=== PATIENT | male | born 1955 | race Caucasian/White ===

== ENCOUNTER → 2018-02-08 12:36 | Outpatient (CLI) | payer OTHER, SELFPAY | PROVIDERS: Family Provider Family Medicine; PCP Family Medicine; Visit Provider Family Medicine | DX: R41.82 Altered mental status, unspecified (principal) | CPT/HCPCS: 70551 ==

== ENCOUNTER → 2023-04-18 | Outpatient (CLI) | payer MEDICARE, SELFPAY ==
--- NOTE | 2023-04-20 09:06 | EKG12_ITS ---
Test Reason : PRE OP Blood Pressure : / mmHG Vent. Rate : 051 BPM Atrial Rate : 051 BPM P-R Int : 192 ms QRS Dur : 088 ms QT Int : 420 ms P-R-T Axes : 070 078 042 degrees QTc Int : 387 ms Sinus bradycardia Otherwise normal ECG Confirmed by DEYA BUTLER, CARMEN ([id number]), business editor YNES BAPTISTE ([id number]) on 05/01/2023 8:05:13 AM Referred By: MICHAEL Confirmed By:PRACHI FALK MD
[2023-04-20 10:33] LABS: Hematocrit 46.2 % (40-54); Hemoglobin 14.8 g/dL (13.0-16.5); Mean Corpuscular Hgb 30.6 pg (27.0-32.0); Mean Corpuscular Volume 95.7 fL (80-94); Mean Platelet Vol. 10.9 fl (6.2-12.0); Platelet Count 229 K/mm3 (150-450); RBC Distribution Width CV 12.4 % (11.6-14.6); RBC Distribution Width SD 44.3 fl (35.1-43.9); Red Blood Count 4.83 M/mm3 (4.6-6.2); White Blood Count 6.5 K/mm3 (4.4-11.0)
== END | disposition home or self-care (01) ==
LOC: PAT 05-16 09:42
PROVIDERS: Anesthesiology; PCP Family Medicine; Visit Provider Urology
DX: Z01.810 Encounter for preprocedural cardiovascular examination (principal); Z01.818 Encounter for other preprocedural examination
CPT/HCPCS: 36415; 85027; 93005

== ENCOUNTER → 2023-04-24 | Outpatient (CLI) | payer MEDICARE, SELFPAY ==
[2023-04-24 17:24] LABS: Amphetamine Urine VISTA NEGATIVE (<1000 ng/mL); Barbiturate Urine VISTA NEGATIVE (< 200 ng/mL); Benzodiazepine Urine VISTA NEGATIVE (< 200 ng/mL); Cocaine Urine VISTA NEGATIVE (< 300 ng/mL); Ecstacy Urine VISTA NEGATIVE (< 500 ng/mL); Methadone Urine VISTA NEGATIVE (< 300 ng/mL); PCP Urine VISTA NEGATIVE (< 25 ng/mL); THC Urine VISTA NEGATIVE (< 50 ng/mL); Vista UDS pH Range 5
== END | disposition home or self-care (01) ==
LOC: LAB 15:44
PROVIDERS: PCP Family Medicine; Referring Provider Internal Medicine Pulmonary Disease; Visit Provider Internal Medicine Pulmonary Disease
DX: G47.33 Obstructive sleep apnea (adult) (pediatric) (principal); Z79.899 Other long term (current) drug therapy
CPT/HCPCS: 80307

== ENCOUNTER 2023-06-20 08:00 | Outpatient (RCR) | payer MEDICARE, SELFPAY ==
--- NOTE | 2023-06-20 10:00 | BH.COMM ---
Communication Note Communication with Client Communication Note: Met with patient to complete initial paperwork. Significant change since pre-admission screening is that his mother . Completed [place] Suicide screening with low risk. Consulted with Dr. Gomez with order to admit to IOP level of care with dx F31.4
--- NOTE | 2023-06-20 10:10 | BH.SGPN.GN ---
Behaviors/Verbalizations/Mental Status: []Pt alert and oriented, casually dressed and groomed. Eye contact good. Motor activity appropriate. Speech within normal limits. Affect congruent, mood anxious. Thoughts linear, logical, no signs of hallucinations or delusions. Client Response/Progress/Benefit: []Pt was an active participant in activity and taking notes during group discussion. Attentive during psychoeducation on coping skills, why people use unhealthy coping skills, and how to replace unhealthy coping skills. Group came up with list of negative coping skills including not asking for help, avoidance, isolating, and sleeping. Group discussed the effects of how negative coping skills can impact mental health in a negative way. Benefited from increased understanding of unhealthy coping skills and the need for developing healthy internal and external coping skills. Pt will continue IOP tx to improve mood stability, improve daily functioning, and prevent decompensation.
--- NOTE | 2023-06-20 11:10 | BH.SGPN.GN ---
Behaviors/Verbalizations/Mental Status: []Pt alert and oriented, casually dressed and groomed. Eye contact fair. Motor activity appropriate. Speech within normal limits. Affect congruent, mood anxious. Thoughts linear, logical, no signs of hallucinations or delusions Client Response/Progress/Benefit: []Pt responded well to session, taking notes and contributing. Group discussed the different categories of coping skills which included distraction, emotional release, grounding, self-love, and thought challenging.? Pt participated in creating a coping skills ?menu? from the five categories of coping skills. Pt's coping skill menu included: talking to friends, getting outside, belly breathing, wins journal, and focusing on positives. Appeared to benefit from increasing repertoire of healthy coping skills. Will continue IOP tx to improve mood stability, increase healthy coping skills, and prevent decompensation.
--- NOTE | 2023-06-20 14:23 | BH.PSA_ITS ---
Source of Information Presenting Problems/Circumstances Problems, Referral Source, Mental Status, Client: The patient is a 67-year-old male with a long history of bipolar 1 disorder who was referred to the [facility] behavioral health IOP by his outpatient provider, Keyona Mckeon, for worsening depression. The patient states that he has been depressed for several years now and was seen with his at the intake and says that patient tends to minimize his symptoms but she feels he has no [place] . He endorses sadness, hopelessness, anhedonia but states that he does enjoy being outside. He does admit to passive thoughts of . Pt reports when he is severely depressed he will sleep most of the day. Reports panic attacks a few times a week. Identifies marriage as current stressor. Psychiatric Presentation Psych Issues & Need for Admission Psychiatric Issues:: Bipolar I disorder, Panic Disorder, KSENIA Past Psychiatric History MH Treatment Hx Treatment History: Pt has received off and on treatment since he was in his mid- twenties. He has a psychiatrist for [address] Philip Mary in [facility]. He has been seeing Keyona Mckeon at [facility] in [place] for 1 1/2 years for counseling. First hospitalization:: 1985 [place] Most recent hospitalization:: 1986 [place] Describe (age, circumstance, etc) any past hospitalizations: Pt was 27 years old when he was first hospitalized for suicidal thoughts. Pt reported he believed at the time he was experiencing Bipolar symptoms, but wasn't diagnosed with Bipolar I until his second hospitalization the next year. Development & Family of Origin Childhood Significant Childhood Events: He was born and raised in [place] [facility] and describes his childhood as good. He grew up on a small farm and he was the fifth out of 8 siblings. Family Who currently lives in your home?: Lives with and two of his sons. Describe family composition:: He got at age 26 and and his is 5 years younger than him and they have 6 children age 19-39. He has a 23-year-old son who he feels is depressed to his living at home and a 19-year-old who is attending [place] college. He enjoys his grandchildren and other children. Family History Family Hx of Psychiatric or AOD Problems: His brother and grandfather have bipolar and his uncle by suicide. Father was an alcoholic. Ethnicity Sexuality Sexual Orientation: Heterosexual Mental Status Memory Recent Memory: Fair Remote Memory: Fair Concentration Concentration: Fair Eye Contact Eye Contact: Good Speech Speech: Tangential Thought Process Thought Process: Logical Insight: Fair Judgment: Fair Behavior: Normal and Anxious Orientation Orientation: Time, Person, Place and Situation Appearance Appearance: Appropriate Mood Mood: Anxious Affect Affect: Alert Suicide Assessment Suicidal Ideation Have you ever felt like hurting yourself?: Yes Please explain:: No active suicidal thoughts. Passive thoughts of . No hx of suicide attempts. Physician Notification Violent Behavior/Abuse History Homicidal Ideation Do you have any homicidal thoughts? If so, explain:: No Abuse Have you ever been abused?: No Life Events Are there any other significant life events?: (parents) Safety Do you ever feel threatened in your home? If yes, describe:: No Adult Social History Age 19 to Present Describe your current support system:: Pt reported his can be supportive, but in the past couple years they have been having more issues. Stated they have less in common and have drifted apart. Substance Use Substance Substance Use Type: Alcohol (He uses alcohol about once a week he has 1 beer or 1 whiskey. 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 He is on disability due to his mental health issues for several years now. Service Service Have you ever been in the ?: No Legal History Records Have you had any past legal charges?: No Do you have any current legal charges?: No Have you ever been incarcerated? If yes, describe:: No Court Orders Have you had any past court orders for psychiatric treatment?: No Do you have a present court order for psychiatric treatment?: No Problem Checklist Current Problem Areas Problem List: Depressed mood/sad, Bereavement, Anxiety, Anger/aggression and Additional psychosocial stressors Perennial House Manager's Assessment Client's Needs What are the client's goals?: Feel happier/experience [place]. Improve healthy photocopy operator ing skills. What are the client's strengths?: Resilience Diagnoses Diagnoses Diagnosis #1:: Bipolar I most recent episode depression, severe without psychosis F31.4 Diagnosis #2:: Panic Disorder Diagnosis #3:: KSENIA Interpretive Summary Interpretive Summary Interpretive Summary: The patient is a 67-year-old male with a long history of bipolar 1 disorder who was referred to the [facility] behavioral health IOP by his outpatient provider, Keyona Mckeon, for worsening depression. The patient states that he has been depressed for several years now and was seen with his at the intake and says that patient tends to minimize his symptoms but she feels he has no [place] . He endorses sadness, hopelessness, anhedonia but states that he does enjoy being outside. He does admit to passive thoughts of . Pt reports when he is severely depressed he will sleep most of the day. Reports panic attacks a few times a week. Identifies marriage as current stressor. 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 The patient's mother April 26, 2023 at age 97 and he was close to her so he is grieving this loss. He denies any history of self-harm and does not use caffeine. His energy is low some days. Concentration is low at times but other times is normal. He denies guilt, suicidal ideation, plan for suicide, homicidal ideation, hallucinations, delusions or patricio symptoms. 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 He denies OCD, eating disorder, trauma, PTSD, seizure or head trauma. Last manic episode was in 2016 and involve grandiosity high-energy and other. Treatment Plan Recommendations Recommendations Guidelines Recommendations:: The patient will start the IOP in behavioral health at [facility] as the structure, support, education and group therapy will hopefully prevent worsening of the patient's symptoms that could result in hospitalization.
--- NOTE | 2023-06-20 15:57 | BH.MTP_ITS ---
Master Treatment Plan Patient Information Program Physician:: Dr. Horta Primary Therapist:: Shaila Harry [facility] Psychiatric Diagnoses Psychiatric Diagnoses:: Diagnosis #1:: Bipolar I most recent episode depression, severe without psychosis F31.4 Diagnosis #2:: Panic Disorder Diagnosis #3:: KSENIA Diagnosis Code(s):: F31.4 Estimated LOS Estimated LOS (in weeks):: 6 Problem/Goal #1 Problem/Goal #1 Stated Goal:: Client will increase mood stability, decrease depressive symptoms, and thoughts of due to Bipolar I through Intensive Outpatient Program. Description of Barriers: Potential barriers to treatment include depressed mood, racing thoughts, low motivation, and limited supports. Functional Impact: The patient is a 67-year-old male with a long history of bipolar 1 disorder who was referred to the [facility] behavioral health IOP by his outpatient provider, Keyona Mckeon, for worsening depression. The patient states that he has been depressed for several years now and was seen with his at the intake and says that patient tends to minimize his symptoms but she feels he has no [place] . He endorses sadness, hopelessness, anhedonia but states that he does enjoy being outside. He does admit to passive thoughts of . Pt reports when he is severely depressed he will sleep most of the day. Reports panic attacks a few times a week. Identifies marriage as current stressor. Objectives Objective #1: Stated Objective: Client will learn and utilize 2-3 healthy coping strategies to manage depressive symptoms. Interventions: Therapist will utilize CBT techniques to assist client with understanding the connection between thoughts, feelings and behaviors. Education will be provided on behavioral activation. Therapist will assist client in learning internal coping strategies to manage depressive symptoms, along with helping client identify triggers. Discharge Criteria: Client will have achieved this goal when can verbalize and has practiced at least 2 healthy coping strategies that successfully manage depressive symptoms. Target Date: 08/01/23 Review Date: 07/18/23 Objective #2: Stated Objective: Identify at least 2-3 negative self-talk messages used to reinforce depressed mood. Interventions: Through groups and individual therapy, pt will be provided with education on cognitive distortions, mistaken beliefs, and identifying and combating negative self-talk. Therapist will help pt explore connection between thoughts, feelings, and actions. Discharge Criteria: Client will have achieved this goal when can verbalize at least 2 negative self-talk messages and effectively replace those thoughts with affirmative messages.? Target Date: 08/01/23 Review Date: 07/18/23 Problem/Goal #2 Problem/Goal #2 Stated Goal:: Stabilize anxiety level while increasing ability to function on daily basis. Description of Barriers: Potential barriers to treatment include depressed mood, racing thoughts, low motivation, and limited supports. Functional Impact: The patient is a 67-year-old male with a long history of bipolar 1 disorder who was referred to the [facility] behavioral health IOP by his outpatient provider, Keyona Mckeon, for worsening depression. The patient states that he has been depressed for several years now and was seen with his at the intake and says that patient tends to minimize his symptoms but she feels he has no [place] . He endorses sadness, hopelessness, anhedonia but states that he does enjoy being outside. He does admit to passive thoughts of . Pt reports when he is severely depressed he will sleep most of the day. Reports panic attacks a few times a week. Identifies marriage as current stressor. Objectives Objective #1: Stated Objective: Client will learn and implement 2-3 calming skills to reduce overall anxiety and manage anxiety symptoms. Interventions: Therapist and group sessions will help client identify phys iological warning signs of anxiety, increase awareness of thoughts that increase anxiety, and identify behaviors that reinforce anxious symptoms. Group and individual counseling will teach client calming skills to help manage anxious symptoms. Discharge Criteria: Client will have achieved this goal when can verbalize at least 2 calming skills and reports skills successfully help reduce anxious symptoms. Target Date: 08/01/23 Review Date: 07/18/23 Objective #2: Stated Objective: Pt will decrease anxious symptoms AEB pt?s score on the DSM 5 cross-cutting measure improve pt?s daily functioning. Interventions: Through groups and individual therapy, pt will be provided education about anxiety?s impact on body and common physiological reaction to anxiety. Therapist will teach pt appropriate breathing techniques and build healthy coping skills to manage daily anxieties. Discharge Criteria: Pt will have met this goal when pt?s score on the DSM 5 cross cutting measure for anxiety has been decreased and per pt?s report daily functioning has improved. Target Date: 08/01/23 Review Date: 07/18/23
--- NOTE | 2023-06-20 15:58 | BH.MDN ---
Multi-Disciplinary Note Note 60-min Individual: Time Started:: 12:05 Date: 06/20/23 Purpose of session/treatment goals addressed:: Purpose of session was to build rapport, gather background information, and establish treatment goals. Eye Contact:: Fair Motor Activity:: Appropriate Appearance:: Casual Speech:: Rambling Mood:: Anxious Affect:: Congruent Thoughts:: Logical and Racing Staff Interventions:: CBT techniques, rapport building, strengths perspective, treatment planning and goal setting Client Response:: Respond well to session as evidenced by client openly sharing thoughts and feelings throughout. Client shared that he has been living with bipolar disorder for over 30 years. Client stated he mostly has been struggling recently with depressed and low episodes. Client reported one of his doctors told him that he likely will experience many patricio episodes as he gets older. Client stated his last bad manic episode would have been what led to him leaving his job approximately in 2017. Client reported he cannot think of any true manic episodes in the last few years. Client reported he mostly is at a 3 and 4 with that meaning to him moderate to severely depressed. Client noted additional psychosocial stressor has been interpersonal conflict within his marriage. Client stated him and his do not get along very often and do not have a lot of commonalities. 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 Client reported his does not want to hear about his farm or be engaged in that which continues to set a barrier between their then connecting. Client expressed frustration that he also wants to focus on building a partnership with several of his siblings to buy his mom's house and create into an area being be but his at this point is not supportive of this idea. Client shared he needs projects to keep him going and is frustrated that she does not want him to do that. Client reported prior to starting IOP he was struggling with significant depression which she stays in his bed and does not do anything. Client stated lately he has been making himself get outside and work on the farm and be with the cattle which he notes does improve his mood. Client stated while he is in IOP he would like to work on building skills to manage mood instability and how to get out of his depressed episodes better. Risks/Concerns:: Client states he occasionally has passive thoughts of denies active thoughts plan or intention. Future oriented. Progress Toward Goals/Plan:: No progress observed given client's first day in IOP. Client has history of bipolar disorder for the last 35 years with recent increase of depressive episodes that result in client staying in his room most the day and not functioning. Client's interpersonal conflict with his does seem to add to negatively impact his mental health. Client is to continue IOP to decrease depressed episodes, improve healthy coping skills, and prevent decompensation. Time Stopped:: 13:10
--- NOTE | 2023-06-21 10:40 | BH.NA_ITS ---
Physical Data Vital Signs Pulse Rate: 55 Blood Pressure: 128/84 Height/Weight Height: 1.68 m Weight:: 65.771 kg Weight in Pounds: 145.0 lbs Current Medication Compliance Medication Compliance Do you take your medication as prescribed?: Yes Nutritional History Appetite Nutritional Instructions: Describe your appetite:: Good Additional nutritional information:: Client states he has gained a few pounds lately and hasn't been working out as much as he normally does. Functional Assessment Sleep Pattern Describe any problems with sleeping: Client states he sleeps about 7-8 hours per night and does use his CPAP machine. 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 If so, list type and date:: Yes (foot, hernia surgery as infant) Substance Abuse Substance Abuse Please describe substance abuse in the last 30 days:: Client states he drinks 1-2 beers per week. Client denies tobacco or substance use. Client states he drinks caffeine occasionally, stating he has 2-3 Pepsi's per week. Mental Status Summary Mental Status Significant Findings/Observations on Appearance and Mood:: Client is alert and oriented x 4. Client is casually groomed. Client is cooperative with assessment. Client makes good eye contact. Client's voice has mostly normal rate but is somewhat mumbled at times. Client has appropriate affect. Client has normal processing. Client denies recent delusions/hallucinations. Client denies current SI. Suicide Assessment Suicidal Ideation Are you currently or have you been suicidal in the past?: Yes Suicidal Intentional Rating Scale (SIRS): Suicidal thoughts (past) Physician Notification Past Psychiatric History MH Treatment Hx Age of first mental health symptoms: Client was first hospitalized in 1985 and then again in 1986 where he was diagnosed with bipolar disorder. Client has been on [place] since 1986. Client states he has not had a manic episode since 2017, but states he spends most of his time feeling depressed. Describe (age, circumstance, etc) any past hospitalizations: 1985 & 1986 - diagnosed with Bipolar 1 disorder Current providers for mental health treatment (counselor, psychiatrist, community case manager , etc.): Dr. Ken Garcia at [facility], therapist Keyona Mckeon at [facility] Fall Risk Assessment Age Age: 60-70 Mental Status Mental Status: Willing & able to ask for assistance when needed Physical Status Physical Status: No problems Impairments Impairments: None Elimination Elimination: Continent AND independent Gait or Balance Gait or Balance: Walks independently Hx of Falls History of falls in the past 6 months: No known history Medications/Substances Psychotropics:: Antipsychotics Medications/substances used within the past 24 hours or ordered to administer: 1-2 of the medications/substances listed above Total Score Total Points:: 2 RN Summary of Impressions Impressions Recommendations Impressions: Psychiatric Issues: 1. Bipolar 1 disorder, most recent episode depression, severe without psychosis (F31.4) 2. Panic disorder 3. Generalized anxiety disorder 4. Obstructive sleep apnea using CPAP (diagnosed 1 month ago) Level of Care How do the client's current symptoms and functional deficits support need for this level of care?: Client was referred to IOP by his outpatient therapist due to limited benefit from outpatient therapy. Client was accompanied to intake of IOP by his , who said he has anhedonia about life. Client does state that he has been depressed most of the last 38 years , but states I'm a fighter, and I still do what I have to do . Client reports being on an antidepressant in 2018 that made him have auditory hallucinations of hearing music and he stopped taking it after several months. Client reports frustration that although he has been on [place] since 1986 and hasn't had a manic episode since 2017, he has felt depressed most of the time. Client states You just aren't living life when you feel depressed all the time . Client states he wants help to not have such severe depression so he can participate in more life activities. Client states he thinks retiring and having less money due to retiring has contributed to his depression. Client denies SI. IOP will promote gains and prevent further decompensation while providing social support and skills training.
[2023-06-21 11:04] VITALS: BP 128/84; PULSE 55
--- NOTE | 2023-06-21 11:15 | BH.SGPN.GN ---
Behaviors/Verbalizations/Mental Status: []Pt alert and oriented, casually dressed and groomed. Eye contact good. Motor activity appropriate. Speech within normal limits. Affect congruent, mood depressed. Thoughts linear, logical, no signs of hallucinations or delusions. Client Response/Progress/Benefit: []Pt responded well to session AEB listening attentively to peers and providing input throughout. Pt attentive during psychoeducation on the different boundary styles. Pt identified he is rigid within some areas of his life but porous within others, dependant on the environment. Pt was given a handout on strategies for healthy boundary setting. Identified wanting to practice self-reflection and reminding himself of the long-term benefit to improve his own boundaries. Appeared to benefit from increasing insight to boundary setting and the impacts on mental health. Seemed to benefit from increased awareness of boundary styles and strategies to improve setting boundaries. Will continue IOP tx to challenge thought distortions, encourage use of behavior activation skills, and prevent decompensation. Narrative Note: []
--- NOTE | 2023-06-21 12:11 | PCM.BH.PSYEV ---
Psychiatric Evaluation Initial Evaluation Initial Evaluation: History of Present Illness: [] The patient is a 67-year-old male with a long history of bipolar 1 disorder who was referred to the [facility] behavioral health IOP by his outpatient provider for worsening depression. The patient states that he has been depressed for several years now and was seen with his at the intake and says that patient tends to minimize his symptoms but she feels he has no [place] . The patient states I am tired of suffering . The patient sleeps all day sometimes when he is depressed. For primary support he has his but he states that they are having some marital issues and they he feels they have grown apart over the years. 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 He also volunteers at [employer] and other. The patient's mother April 26, 2023 at age 97 and he was close to her so he is grieving this loss. He denies any history of self-harm and does not use caffeine. He endorses sadness, hopelessness, anhedonia but states that he does enjoy being outside. His appetite is good and he is gaining few pounds in the past few months. He is sleeping 8 hours a night but also naps during the day at times. His energy is low some days but not others. Concentration is low at times but other times is normal. He denies guilt, suicidal ideation, plan for suicide, homicidal ideation, hallucinations, delusions or patricio symptoms. He does admit to passive thoughts of but states I survive even though I am not thriving . 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 He has panic attacks a few times a week which she has learned to moderate somewhat with breathing exercises. He denies OCD, eating disorder, trauma, PTSD, seizure or head trauma. Last manic episode was in 2017 and involve grandiosity high-energy and other. Current Psychiatric Medications: [] Haynes carbonate 900 mg total (300 mg every morning and 600 mg nightly (x 35 years. Labs are checked regularly and his level runs around 0.6. Kidney function is normal according to the patient. Past Psychiatric History: [] He has a psychiatrist for [address] Philip Mary in [facility]. He had 2 psych admissions in 1985 in 1986 in [place] for depression and patricio. No suicide attempts ever. He took an antidepressant Wellbutrin in 2019 which caused hallucinations. He was diagnosed with bipolar disorder in 1985 after one of his psych admits. His counselor is Selina Mckoen at [facility]. He has tried a few other meds including Wellbutrin, Viibryd and modafinil but these did not work well. He denies any other medication and denies any use of second-generation antipsychotics ever. Substance Use History: [] He uses alcohol about once a week he has 1 beer or 1 whiskey. Non-smoker. No vaping. No marijuana and no drugs. Allergies: [] Latex and red dye Medications: [] Psych meds as dictated above plus Flomax, vitamin D and vitamin C. Past Medical History: [] He has some urinary symptoms secondary to prostate issues. He has had hammertoe surgery and foot surgery in the past but no other issues. Family Psychiatric History: [] Mother age 96 in 2022 and father in 2015 at age 94. His brother and grandfather are bipolar and his uncle completed suicide. Father's was alcoholic. Personal/Social History: [] He was born and raised in [place] and describes his childhood as we did not have much but we had everything . He grew up on a small farm and he was the fifth out of 8 siblings. He was close to all his siblings and closer even still to several of them. He denies any verbal, physical or sexual abuse but does admit that his father yelled at times. Patient states that he had trouble in school initially up to second grade but by high school he did fine graduated high school and the top 15 of his classes. He went to 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 He is on disability due to his mental health issues for several years now. He got at age 26 and and his is 5 years younger than him and they have 6 children age 19-39. He has a 23-year-old son who he feels is depressed to his living at home and a 19-year-old who is attending [employer]. He enjoys his grandchildren and other children. Legal History: [] No arrests. Has sanitation truck driver's license. Review of Systems: [] Patient has difficulty urinating due to prostate issues but review of systems is otherwise negative except as noted in present illness. Vital Signs: [] Vital signs are reviewed reviewed in the records and in the nurses notes and updated and the patient is deemed medically able to participate in the IOP. Mental Status Examination: [] The patient is a 67-year-old male who appears younger than stated age and is seen wearing glasses and is of normal weight. He is casually dressed and groomed with good hygiene and has no psychomotor agitation or retardation. He is cooperative and pleasant during the interview. Speech is rapid at times but not pressured. It is normal rate and rhythm and fluent. Eye contact is good. Mood is depressed. Affect is constricted. Thought process is goal-directed and organized. Thought content: There is evidence of passive thoughts of . There is no evidence of suicidal ideation, plan for suicide, homicidal ideation, hallucinations, delusions or symptoms of patricio. Reality testing is intact. Intelligence is above average. Judgment is intact. Insight: Some present but limited. Labs and testing: Done on a routine basis by his outpatient doctor for his lithium. He is at 150 pounds and 5 foot 6 inches tall and usually is about 10 pounds thinner than this. Diagnoses: [] 1. Bipolar 1 disorder, most recent episode depression, severe without psychosis (F31.4) 2. Panic disorder 3. Generalized anxiety disorder 4. Obstructive sleep apnea using CPAP (diagnosed 1 month ago) 5. Primary support and work issues Plan: [] The patient will start the IOP in behavioral health at [facility] as the structure, support, education and group therapy will hopefully prevent worsening of the patient's symptoms that could result in hospitalization. He felt safe during the interview and if it anytime he does not feel safe he will let us know or go to the emergency room. The risk, and options, possible complications and side effects of the medications were discussed with the patient and he understands and accepts these. He will continue his lithium at the current dose. He agrees to try Vraylar 1.5 mg p.o. daily and prescription is sent in for this. If insurance will not cover this we may have to try medication such as Latuda instead. Patient does not wish any weight gain as he gained weight over the holidays. Patient received a diagnosis of pseudodementia in 2019 but I see no evidence of this at this point. The patient will continue to follow-up with his outpatient medical and psychiatric providers and I will see the patient in follow-up in 2 weeks.
--- NOTE | 2023-06-21 12:23 | BH.DR.ITP ---
Initial Treatment Plan Patient Information Visit Information: ADMISSION DATE: EXPECTED LOS: 4-6 weeks Problems/Symptoms Problem #1:: Depression Symptom:: Sadness, hopelessness, anhedonia, hypersomnia, low energy, decreased concentration, passive thoughts of . Problem #2:: Anxiety Symptom:: Worry, rumination, panic attacks
--- NOTE | 2023-06-22 09:05 | BH.SGPN.GN ---
Behaviors/Verbalizations/Mental Status: [] Eye contact is good. Motor activity is appropriate. Appearance is casual. Speech is appropriate. Mood is anxious. Affect is congruent. Thoughts are linear and logical. No evidence of psychosis. Reviewed daily check in sheet and no reports of suicidal ideations or intent. Client Response/Progress/Benefit: [] Pt was an active participant in group discussion. Attentive. Daily symptom tracker notes 4/5 for depression and 3/5 for anxiety. Believes that his mood and functioning have been worse over the past week. Reports being emotionally exhausted after his first week in IOP level of care however I want to be here and I find it helpful . Pt reported that his describes him as anhedonic and shows this therapist a printed out article on the term. This is me . Reports no [place] or laughter. Only time I laugh is when I play Pickleball . He presents as talkative and upbeat so to some extent his mood is incongruent. Shared with the group how he plans everything out during the day and even the month. Discussed his plans for today which other group members reported sounded exhausting. Described an event this AM regarding making and spilling soup broth which led to dysregulation. I lost it . Feels unappreciated. Describes all these tasks he completed and felt accomplished however believes his only pointed out what he failed to do. Shared a time when my said a prayer that I would say anything inappropriate which impacted his feelings. Interpersonal relationships and anhedonia are reported to be significantly impact his self-esteem and depression. Limited progress noted however this is only his 3rd day. Benefited from group support, encouragement, and feedback. Will continue in [facility] to prevent decompensation, stabilize mood, and increase healthy coping. Narrative Note: []
--- NOTE | 2023-06-22 10:15 | BH.SGPN.GN ---
Behaviors/Verbalizations/Mental Status: []Pt alert and oriented, casually dressed and groomed. Eye contact good. Motor activity appropriate. Speech within normal limits. Affect congruent, mood depressed. Thoughts linear, logical, no signs of hallucinations or delusions. Client Response/Progress/Benefit: []Pt an active participant throughout. Participated during interactive discussion on defining conflict (internal/external) and possible benefits to conflict. Attentive during psychoeducation on conflict styles and engaged during small group activity in which peers identified the benefits and consequences to each conflict style. Pt identified their primary conflict style as avoiding when he does not have energy and collaborating when he has the emotional energy to give. Shared avoiding keeps him from getting needs met. Benefited from increased awareness of the impact of conflict styles in mental health. Will continue in IOP to reinforce healthy coping skills, reduce intensity of distorted thoughts, and improve mood stability. Narrative Note: []
--- NOTE | 2023-06-22 11:15 | BH.SGPN.GN ---
Behaviors/Verbalizations/Mental Status: []Pt alert and oriented, neatly dressed and groomed. Eye contact good. Motor activity appropriate. Speech within normal limits. Affect congruent, mood euthymic. Thoughts linear, logical, no signs of hallucinations or delusions. Client Response/Progress/Benefit: [] Pt was an active participant in group discussions and activity. Attentive during psychoeducation. Along with peers was able to reflect on what conflict resolution skills can be useful outside of IOP. Pt chose to continue to work on the conflict resolution skills of discussing one topic at a time, expressing feelings with words, and taking a break when things get heated. Benefited from practicing and learning conflict resolution skills. Will continue in IOP to prevent decompensation, gain healthy coping skills, and increase self-awareness. Narrative Note: []
--- NOTE | 2023-06-26 09:05 | BH.SGPN.GN ---
Behaviors/Verbalizations/Mental Status: [] Pt alert and oriented, casually dressed and groomed. Eye contact good. Motor activity appropriate. Speech within normal limits. Affect congruent, mood content, dysthymic. Thoughts linear, logical, no signs of hallucinations or delusions. Reviewed pt?s symptom tracker, no risk for suicidal ideation, plan, or intent 06/26/23 Client Response/Progress/Benefit: []Pt responded well to session, participating in processing and providing supportive feedback. Pt reports feeling glad this morning sharing that he is happy he followed through with beginning the IOP program last week, as he has found the environment to be very supportive. Pt reports that he felt tired following the first week and is trying to remind himself this is normal, given the change in focusing on his mental health rather than suppressing things. Went on to identify an additional win as attending several social events with his family and voodoo over the weekend. Reports feeling most like himself when he is busy. Pt did however recognize that he may have ?overdone it?, as he had difficulties getting out of bed and getting motivated Monday as a result. Receptive of discussion on identifying what a healthy balance looks like for him. Pt appeared to benefit from self-reflection on areas of progress, as well as from group support. Pt will continue IOP tx to promote mood stability, increase distress tolerance skills, and improve daily functioning. Narrative Note: []
--- NOTE | 2023-06-26 10:20 | BH.SGPN.GN ---
Behaviors/Verbalizations/Mental Status: []Pt alert and oriented, neatly dressed and groomed. Eye contact good. Motor activity appropriate. Speech- within normal tone/rate, but off topic at times. Affect congruent, mood euthymic. Thoughts linear, logical, no signs of hallucinations or delusions. Client Response/Progress/Benefit: [] Pt was engaged and open to the discussion and appeared to respond well to the group. Pt used active listening and gave feedback during group discussion. Pt stated belief that he has a positive perspective about treatment which is helping pt engage more and have an open mind. Pt admits that he has not always been positive and he often told himself ?this is just how I am.? Pt appeared to benefit from increasing awareness of different perspectives and how they can affect mental health. Pt will continue IOP treatment to improve daily functioning, gain healthy coping skills, and prevent decompensation. Narrative Note: []
--- NOTE | 2023-06-26 11:10 | BH.SGPN.GN ---
Behaviors/Verbalizations/Mental Status: []Pt alert and oriented, casually dressed and groomed. Eye contact good. Motor activity appropriate. Speech within normal limits. Affect congruent, mood euthymic. Thoughts linear, logical, no signs of hallucinations or delusions. Client Response/Progress/Benefit: []Pt was attentive and contributed to group discussion. Pt worked with group to identify strategies that can help with challenging negative perspective. Pt completed strengths exploration worksheet, identifying empathy, honesty, kindness, humor, and confidence as personal strengths. Pt able to acknowledge how these strengths are helping pt and can continue to help pt in mental health journey. Pt identified wanting to work on getting back to his strengths of enthusiasm and adventurousness. Benefited from identifying personal strengths and strategies for enhancing use of identified strengths. Pt will continue IOP tx to increase healthy coping skills, challenge distorted thoughts, and prevent decompensation.
--- NOTE | 2023-06-28 09:05 | BH.SGPN.GN ---
Behaviors/Verbalizations/Mental Status: [] Eye contact is good. Motor activity is appropriate. Appearance is casual. Speech is Appropriate. Mood is depressed. Affect is congruent. Thoughts are linear and logical. No evidence of psychosis. Reviewed daily check in sheet and no reports of suicidal ideations or intent. Client Response/Progress/Benefit: [] Pt was an active participant in group discussion. Attentive. Daily symptom tracker notes 08/21 for anxiety, depression, and irritability. He shared mental health wins which included practicing conflict resolution, patience, and not being critical. He remains active however avoids family spending a majority of his day outside tending to projects in his barn. Poor self-esteem feeling as if he does everything wrong . especially can be hypercritical of him, his choices, and his actions leading him to feel more as a burden. He shared a recent example. When asked how he is managing his depression he states I do good things for others . Seeks reassurance that he is beneficial, helpful, and needed. Completing tasks and volunteering is where he gets his most self-worth. Limited progress noted. Benefits feom group support, empathy, and feedback. Will continue in IOP to prevent decompensation, decrease depression, and to increase healthy coping. Narrative Note: []
--- NOTE | 2023-06-28 10:10 | BH.SGPN.GN ---
Behaviors/Verbalizations/Mental Status: [] Client alert and oriented, casually dressed and groomed. Eye contact good. Motor activity appropriate. Speech within normal limits. Affect congruent, mood euthymic. Thoughts linear, logical, no signs of hallucinations or delusions. Client Response/Progress/Benefit: [] Client responded well to session AEB sharing and listening attentively to others. Group provided examples of benefits of having social support, including: feeling like you matter, security, and motivation. Client also participated in group discussion regarding the barriers to accessing support including personal examples like: not reaching out, lack of communication, and over using certain supports. Client participated in experiential activity illustrating the impact communication, boundaries, and patience play in creating healthy support systems. Client appeared to benefit from increased knowledge of the benefits of social support and greater self-awareness. Will continue IOP tx to prevent decompensation, reduce negative self-talk, and improve overall functioning. Narrative Note: []
--- NOTE | 2023-06-28 11:10 | BH.SGPN.GN ---
Behaviors/Verbalizations/Mental Status: [] Client alert and oriented, casually dressed and groomed. Eye contact good. Motor activity appropriate. Speech within normal limits. Affect congruent, mood euthymic. Thoughts linear, logical, no signs of hallucinations or delusions. Client Response/Progress/Benefit: [] Client was an active participant throughout AEB contributing to discussion, providing personal examples, and taking notes. Client processed emotions felt in the activity and how they coped in the moment. Client provided input during discussion on the types of support our supports can provide. Client able to identify current support system and barriers that get in the way of using supports by drawing out their own support net. Client reported after identifying what type of supports they receive; they gained awareness that they could benefit from more emotional supports. Client identified steps to achieve this by joining a support group, calling up new friends, and spending time with supports. Client shared increasing this support will help them by getting affirmation and support. Client seemed to benefit from identifying the type of support client needs to work on improving. Client recommended to continue IOP tx to prevent decompensation, challenge thinking patters, and increase emotional regulation skills. Narrative Note: []
--- NOTE | 2023-06-30 09:05 | BH.SGPN.GN ---
Behaviors/Verbalizations/Mental Status: [Patient was alert and oriented, appropriately dressed and groomed. Eye contact was good, motor activity normal, speech within normal limits. Affect congruent, mood content. Thoughts linear, logical, no signs of hallucinations or delusions. Reviewed Patients symptom tracker and the patient reports low/moderate in depressed mood, anxiety/panic attacks, and agitation/irritability/anger. Patient does not report symptoms in self-harm urges or thoughts/risk for suicide. ] Client Response/Progress/Benefit: [Patient was engaged and open to the discussion. Patient reported his mood to be ?tired?. 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 But he had ?the best time and the most fun? he has had in a while. Patients second win was that he has written out a list of things he is unhappy with his marriage and that he and his will be going to marriage counseling. His stressor is that he is having troubles with his . Patient was interactive and respectful with other group members about their mental wins and stressors. Patient benefited from the discussion by listening to feedback and giving input on his peer?s stressors and mental health wins. Patient will continue with IOP treatment to help develop healthy skills, promote mood stability, and improve distress tolerance. ] Narrative Note: []
--- NOTE | 2023-06-30 11:15 | BH.SGPN.GN ---
Behaviors/Verbalizations/Mental Status: []Pt alert and oriented, casually dressed and groomed. Eye contact fair to good. Motor activity appropriate. Speech within normal limits. Affect congruent, mood irritable and dysthymic. Thoughts linear, logical, no signs of hallucinations or delusions. Client Response/Progress/Benefit: [] Pt was an active participant during activity and discussion AEB providing some input, connecting with peers, as well as taking notes throughout. Pt did well to engage as group worked on identifying characteristics and benefits of adopting a growth mindset. Worked with fellow participants in reframing the example fixed thoughts into growth mindset thoughts. Pt worked on changing own fixed thought to a more growth mindset thought, however declined to share this out loud with the group. Receptive of discussing benefits of growth mindset and brainstorming strategies for prompting growth-mindset. Pt appeared to benefit from working in small groups to challenge own thoughts and help peers. Pt will continue IOP tx to improve mood stability, reduce negative thought patterns, and improve daily functioning. Narrative Note: []
--- NOTE | 2023-06-30 14:49 | BH.MDN ---
Multi-Disciplinary Note Note 60-min Individual: Time Started:: 10:12 Date: 06/30/23 Purpose of session/treatment goals addressed:: Purpose of session was to address goals 1 and 2 from MTP. Eye Contact:: Good Motor Activity:: Appropriate Appearance:: Casual Speech:: Rambling Mood:: Euthymic and Anxious Affect:: Congruent Thoughts:: Logical and Racing Staff Interventions:: thought challenging, psychoeducation on: (wins journal), CBT techniques, rapport building, strengths perspective and goal setting Client Response:: Client reported he spoke with his yesterday and she had some questions for therapist. Client stated his wanted to know if couples counseling would make client worse. therapist stated if they want to improve their relationship couples counseling would likely be helpful. Client stated he believes couples counseling is truly the only way to improve their relationship at this point. Client stated he doesn't see how the relationship could get better if they don't try something different. Client reported his would like to come in to join one of the Individual sessions while he is in IOP. 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 Client stated it would be difficult on the relationship if his chooses to not support his endeavor of wanting to purchase his parents property with other siblings involved. 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 Client stated it's frustrating to not have the support of his which adds additional layer of complication within the relationship. Client stated he has been doing better with getting outside and going for walks. Client receptive to psychoeducation about the importance of identifying daily wins and looking at the things he is accomplishing. Client agreeable to start a journal in which he will track his mood and identify his daily wins. Therapist encouraged client to express gratitude or appreciation towards his each day. Risks/Concerns:: Denies suicidal ideation, plan, or intention to date. future oriented. Progress Toward Goals/Plan:: Progress noted with client reporting getting out of his house more consistently and not isolating. Client still struggles with negative thoughts and down moods. Client identifies his marital conflict to be negatively contributing to his mental health. Client is future oriented AEB client excitedly talking about the potential projects he could have if he can purchase his parents property and convert it into a [employer]. Client to continue IOP to stabilize moods, increase healthy coping, and prevent decompensation. Time Stopped:: 11:10
--- NOTE | 2023-07-04 09:10 | BH.SGPN.GN ---
Behaviors/Verbalizations/Mental Status: [] Pt alert and oriented, casually dressed, grooming appropriate. Eye contact good. Motor activity appropriate. Speech within normal limits. Affect congruent, mood content. Thoughts linear, logical, no signs of hallucinations or delusions. Reviewed pt?s symptom tracker, no risk for suicidal ideation, plan, or intent 07/04/23 Client Response/Progress/Benefit: []Pt responded well to session, participating in processing and providing supportive feedback. Pt reports feeling focused this morning. Discussed a recent win as beginning a daily wins or accomplishment journal. Shared this has been helpful for himself to have increased awareness of his mood and where I'm at in the moment . Additional win noted as catching up with a friend from [employer] and being able to provide him with support. Current stressor is ongoing issues with his sons who pt reports he often struggles to motivate them to help with household responsibilities. Discussed trying to take breaks and establish healthier boundaries with them. Pt appeared to benefit from self-reflection on areas of progress, as well as from group support. Pt will continue IOP tx to promote mood stability, increase application of distress tolerance skills, and improve daily functioning. Narrative Note: []
--- NOTE | 2023-07-04 10:10 | BH.SGPN.GN ---
Behaviors/Verbalizations/Mental Status: []Pt alert and oriented, casually dressed and appropriately groomed. Eye contact fair. Motor activity appropriate. Speech within normal limits. Affect congruent, mood euthymic. Thoughts linear, logical, no signs of hallucinations or delusions. Client Response/Progress/Benefit: [] Pt was an active participant in group discussions. Attentive during psychoeducation. Contributed during interactive discussions in which peers attempted to define crisis . Pt identified examples of potential crisis. Group also worked together to identify unhealthy responses to crisis which included; isolation, self-harm, substance abuse, avoidance, and distraction. Pt identified personal warning signs as increased negative thinking, difficulty concentration, and racing thoughts. Benefited from increased understanding of crisis and awareness of personal responses to crisis. Pt will continue IOP tx to improve mood stability, challenge distortions, and prevent decompensation.
--- NOTE | 2023-07-04 11:10 | BH.SGPN.GN ---
Behaviors/Verbalizations/Mental Status: [] Eye contact is good. Motor activity is appropriate. Appearance is casual. Speech is Appropriate. Mood is euthymic. Affect is congruent. Thoughts are linear and logical. No evidence of psychosis. Client Response/Progress/Benefit: [] Pt was an active participant in group discussions. Attentive during psychoeducation. In small group pt along with peers developed an active plan for their crisis warning signs. Pt identified three crisis warning signs as well as an action plan for each. One crisis warning sign is negative thinking with an action plan that involved:music, get outside, call healthy support, taking medications, and wins journal. Benefited from increased awareness of crisis warning signs and by developing crisis intervention strategies. Will continue in IOP to increase use of healthy coping skills, challenge distortions/negative thinking, and prevent decompensation.
--- NOTE | 2023-07-05 09:05 | BH.SGPN.GN ---
Behaviors/Verbalizations/Mental Status: [Patient was alert and oriented, appropriately dressed and groomed. Eye contact was good, motor activity normal, speech within normal limits. Affect congruent, mood content. Thoughts linear, logical, no signs of hallucinations or delusions. Reviewed Patients symptom tracker and the patient reports low in depressed mood, anxiety/panic attacks, and agitation/irritability/anger. Patient does not report symptoms of self-harm or thoughts/risk of suicide. ] Client Response/Progress/Benefit: [Patient was engaged and open to the discussion. Patient reported his mood to be ?motivated?. Patients first win was that he felt ?really good? yesterday and therefore ?got a lot of things done?. Patient explained to the group that when he feels good, he feels like he can do everything but when he feels bad, he barely gets out of bed. Patient believes that his medication has something to do with this. Patients second win was that he is creating a den in his house which he will be able to put his office stuff in instead of having it in his bedroom. Patients stressor is his relationship with his . They have been working on their marriage and he finds it frustrating that his expects him to be able to tell her everything that happens in group verbatim but states he does not learn that way. Patient was interactive and respectful with other group members about their mental wins and stressors. Patient benefited from the discussion by listening to feedback and giving input on his peer?s stressors and mental health wins. Patient will continue with IOP treatment to help develop healthy skills, promote mood stability, and improve distress tolerance. ] Narrative Note: []
--- NOTE | 2023-07-05 11:52 | PCM.BH.PN ---
Progress Note Progress Note: History of Present Illness/Interim History: The patient is a 67-year-old male with a long history of bipolar 1 disorder with current episode depression who is seen in follow-up at the [facility] behavioral health IOP. I last saw the patient 2 weeks ago and at that time Latuda was prescribed at 20 mg daily with food. The Vraylar ordered was too expensive so we changed to Latuda. According to the staff the patient has participated in the program and has engaged in consistent but does talk a lot lately and sometimes is hard to get him to stop talking during group. The patient states he is tolerating the Latuda well and denies any side effects. He rates his mood from 0-10 with 0 being suicidal and 10 being manic. He states that his mood is 5-6 now and states he is much less depressed but he does not feel he is hypomanic or manic. He is sleeping 7 to 8 hours a night from about 11 PM to 7 AM and is not napping during the day now. He denies sadness and denies hopelessness now. He is still having some marital issues and feels his always thinks the worst of him. When asked if his would think he was improving he says that he does not know because she has not said. He denies passive thoughts of , anhedonia, suicidal ideation, plan for suicide, homicidal ideation, hallucinations or delusions. He denies any symptoms of patricio. Current Psychiatric Medications: [] [place] carbonate 300 mg every morning and 600 mg p.o. nightly. On this for 35 years and labs or chest checked regularly and patient states his levels run between 0.6 and 0.9. Kidney function has been normal.; Latuda 20 mg p.o. daily with food (x 2 weeks) Mental Status Examination: [] The patient is a 67-year-old male who appears younger than stated age and is seen wearing glasses and is of normal build. He has no psychomotor agitation or retardation and is casually dressed and groomed with good hygiene. He is cooperative and pleasant during the interview. Eye contact is good and speech is overall somewhat rapid and possibly slightly pressured at times. Speech is fluid and normal rhythm. Mood is euthymic. Affect is full and normal. Thought process is goal-directed and organized. Patient is overinclusive at times but is easily redirected or interrupted. Thought content: There is no evidence of passive thoughts of , suicidal ideation, plan for suicide, homicidal ideation, hallucinations or delusions. There is evidence of possible hypomania but patient feels he is not at that point yet. Reality testing is intact. Intelligence is above average. Judgment is intact. Insight: Fair. Diagnoses: [] 1. Bipolar 1 disorder, most recent episode hypomanic (F 31.0) 2. Panic disorder 3. Generalized anxiety disorder 4. Obstructive sleep apnea using CPAP 5. Primary support and work issues Plan: [] The patient will continue the IOP at [facility] as the structure, support, education and group therapy will hopefully prevent worsening of the patient's symptoms that could result in hospitalization. He felt safe during the interview and if it anytime he does not feel safe he will let us know or go to the emergency room. The risk, options, possible complications and side effects of the medications were discussed again with the patient and he understands accepts these. He agrees to increase his Latuda to 40 mg p.o. daily with food. Discussed with the patient that he feels if he feels he becomes hypomanic or manic he needs to let us know as soon as possible and I will see him in follow-up in 1 week. He will continue also to follow-up with his outpatient providers.
--- NOTE | 2023-07-05 12:41 | BH.MDN ---
Multi-Disciplinary Note Note 60-min Individual: Time Started:: 11:30 Date: 07/05/23 Purpose of session/treatment goals addressed:: Purpose of session was to address goals 1 and 2 from MTP. Eye Contact:: Fair Motor Activity:: Appropriate Appearance:: Casual Speech:: Rambling Mood:: Euthymic and Anxious Affect:: Congruent Thoughts:: Logical and No evidence of hallucinations/delusions noted Staff Interventions:: thought challenging, CBT techniques, rapport building, strengths perspective and goal setting Client Response:: Client reported he has been on the new medication for two weeks and has noticed improvement in his mood. Client stated he would rate himself at a 5 or 6 on his mood scale. Client explained his mood scale starts at 0 which is , 1-2 is severely depressed, 3-4 is depressed, 5-6 is stable/happy, 7-8 is hypomanic, and 9-10 is manic. Client stated he knows his is worried he will become hypomanic, but he doesn't feel like he is hypomanic at this time. Client became tearful when thinking about having to go back to feeling like a 3 on his scale. Client stated he finally is starting to enjoy doing things again. Client reported he is getting sleep each night and is feeling more stable. Client stated continued frustration over his marriage. Client asked for any resources for marriage counselors in the area, asking for someone that is [employer] based. Client stated he will continue to monitor his moods and agrees to be honest if he notices his mood switches to hypomanic. Client reported he continues to complete his daily [employer] journal. Risks/Concerns:: Denies suicidal ideation, plan, or intention to date. Client has been adjusting to new medication and he will be monitored on if the medication triggers a hypomanic state. At this time client does not present as hypomanic. Progress Toward Goals/Plan:: Progress noted with client reporting improved mood, increased motivation, and starting to find enjoyment in activities. Client continues to report stress over his marriage. Client reported excitement about potential projects if he were to be able to purchase his parents property. Plan is to closely monitor client's mood. Client to continue IOP to increase healthy coping skills, challenge distorted thoughts, and prevent decompensation. Time Stopped:: 12:30
--- NOTE | 2023-07-06 09:05 | BH.SGPN.GN ---
Behaviors/Verbalizations/Mental Status: [] Eye contact is good. Motor activity is appropriate. Appearance is casual. Speech is Appropriate. Mood is depressed/irritable. Affect is congruent. Thoughts are linear and logical. No evidence of psychosis. Reviewed daily check in sheet and no reports of suicidal ideations or intent. Client Response/Progress/Benefit: [] Pt was an active participant in group discussion. Attentive. Daily symptom tracker notes 07/24 for anxiety, depression, and irritability. Shared that he is feeling worse today noting increased depression and irritability. Ruminating and catastrophizing that as he noted several good days and then decompensation. No clear trigger however he was able to identify a couple events which contributed to his emotions. I'm depressed but you can't probably tell . Able to find mental health wins from yesterday in acceptance, patience, and being OK walking away from a project. I get upset leaving something unfinished . As he described his day he verbalized several cognitive distortions (mind-reading, catastrophizing) and the impact they had on his thoughts. Benefited from group feedback and insight. Progress noted. Will continue in IOP to prevent decompensation, stabilize mood, and improve functioning. Narrative Note: []
--- NOTE | 2023-07-06 10:15 | BH.SGPN.GN ---
Behaviors/Verbalizations/Mental Status: []Client alert and oriented, casually dressed and groomed. Eye contact good. Motor activity appropriate. Speech within normal limits. Affect congruent, mood euthymic. Thoughts linear, logical, no signs of hallucinations or delusions. Client Response/Progress/Benefit: []Pt engaged in session AEB listening attentively to others and providing insight to group discussion. Pt engaged in activity, able to connect how it can be uncomfortable and difficult to accept when things are out of one?s own control. Pt worked with group to identify what things in life can be hard to accept. Group identified things hard to accept as: , body image, loss of relationship, mental health diagnosis, other?s behaviors, and past decisions. Pt worked on identifying what personal things are hard to accept for themself, sharing his mental health, other's behaviors, and loss are some things pt struggles with accepting. Pt seemed to benefit from increased awareness of importance of acceptance. Pt to continue IOP to improve mood stability, increase application of distress tolerance and healthy communication skills, and prevent decompensation. Narrative Note: []
--- NOTE | 2023-07-06 10:20 | BH.SGPN.GN ---
Behaviors/Verbalizations/Mental Status: []Pt alert and oriented, neatly dressed and groomed. Eye contact good. Motor activity appropriate. Speech rambling. Affect congruent, mood euthymic. Thoughts linear, logical, no signs of hallucinations or delusions. Client Response/Progress/Benefit: [] Client connected with topic of Anxiety and participated throughout, providing input and taking notes. Participated throughout interactive discussion defining anxiety and identifying cognitive and physiological symptoms of anxiety. Group discussed how anxiety can prevent them from trying new things. Common physical and cognitive symptoms identified by group included: ?what if thoughts?, ?fear of failure?, negative self-talk, increased heart rate, restlessness, and getting sick more frequently. Pt states he typically avoids which ends up worsening his anxiety. Pt shared he has been working on reducing this. Benefited from increased awareness and insight on anxiety and its impact. Pt will continue IOP tx to reduce negative thinking patterns, increase self-awareness, and improve ability to manage stressors. Narrative Note: []
--- NOTE | 2023-07-06 11:15 | BH.SGPN.GN ---
Behaviors/Verbalizations/Mental Status: []Pt alert and oriented, causal appearance. Eye contact fair. Motor activity appropriate. Speech within normal limits. Affect congruent, mood euthymic. Thoughts linear, logical, no signs of hallucinations or delusions. Client Response/Progress/Benefit: [] Pt was an active participant AEB pt providing input and listening attentively to peers. Attentive during psychoeducation on mindfulness coping skills and their impact on reducing anxiety and improving overall mental health wellness. Group was able to identify self-soothing and mind-based coping skills which included: 5-senses, meditation, deep breathing, journaling, and progressive muscle relaxation. Pt also participated with peers in practicing mindfulness skills in session. Pt would like to work on going outside and taking a mindful walk. Appeared to benefit from increasing repertoire of anxiety reduction skills. Pt will continue in [facility] tx to continue use of healthy coping skills, challenge negative thinking, and prevent decompensation.
--- NOTE | 2023-07-10 09:05 | BH.SGPN.GN ---
Behaviors/Verbalizations/Mental Status: [Patient was alert and oriented, appropriately dressed and groomed. Eye contact was good, motor activity normal, speech within normal limits. Affect congruent, mood content. Thoughts linear, logical, no signs of hallucinations or delusions. Reviewed Patients symptom tracker and the patient reports depressed mood, anxiety/panic attacks, agitation/irritability/anger, self-harm risk, and thoughts/risk of suicide within normal limits.] Client Response/Progress/Benefit: [ Patient was engaged and open to the discussion. Patient reported his mood to be ?excited?. Patients first win is that he is snf through the program, and he is proud of himself. Patients second win is that he has a new cat and made a special place in his garage for it and feels that it has been helping him. Patients stressor is that he has been journaling every day for his and he feels unheard. Patient was interactive and respectful with other group members about their mental wins and stressors. Patient benefited from the discussion by listening to feedback and giving input on his peer?s stressors and mental health wins. Patient will continue with IOP treatment to help develop healthy skills, promote mood stability, and improve distress tolerance. ] Narrative Note: []
--- NOTE | 2023-07-10 10:15 | BH.SGPN.GN ---
Behaviors/Verbalizations/Mental Status: []Eye contact is good. Motor activity is appropriate. Appearance is casual. Speech is tangential. Mood is euthymic. Affect is congruent. Thoughts are linear and logical. No evidence of psychosis Client Response/Progress/Benefit: [] Pt was an active participant in group discussions AEB listening attentively to others and providing feedback at times. Participated in and was engaged during experiential activity. Able to relate activity to group topic of FOF. Engaged during interactive discussion on what failure means to the group in which peers identified and defined failure. Group was able to identify impact of fear of failure on mental health. Attentive during interactive discussion on the role that FOF plays in mental wellness, depression, anxiety, and growth. Pt reported when he fails he is very critical of himself but he also knows failing can help people get closer to their goals. Benefited from increased awareness of how the role that FOF plays in mental health and decision-making. Will continue in IOP to promote mood stability, increase emotional regulation skills, and reduce negative thinking patterns. Narrative Note: []
--- NOTE | 2023-07-10 11:15 | BH.SGPN.GN ---
Behaviors/Verbalizations/Mental Status: []Pt alert and oriented, casually dressed and groomed. Eye contact good. Motor activity appropriate. Speech within normal limits, at times tangential. Affect congruent, mood euthymic. Thoughts linear, logical, no signs of hallucinations or delusions. Client Response/Progress/Benefit: [] Pt responded well to session, engaged in the experiential activity and attentive throughout group processing. At times distracting group with off-topic discussion. Pt reported fear of failure has kept Pt from trying new things and dealing with conflict in healthy ways. Pt completed fear of failure worksheet and was able to identify thoughts and behaviors that reinforce personal fear of failure including limited resources, not knowing how or where to begin, focusing on others. Pt participated in group discussion regarding strategies to overcome fear of failure. Identified wanting to work on looking for the lessons in failure . Appeared to benefit from increased knowledge of strategies to combat fear of failure and gaining self-awareness. Pt will continue IOP tx to improve mood stability, improve interpersonal relationships, and prevent decompensation. Narrative Note: []
--- NOTE | 2023-07-12 09:05 | BH.SGPN.GN ---
Behaviors/Verbalizations/Mental Status: [Patient was alert and oriented, appropriately dressed and groomed. Eye contact was good, motor activity normal, speech within normal limits. Affect congruent, mood content. Thoughts linear, logical, no signs of hallucinations or delusions. Reviewed Patients symptom tracker and the patient reports depressed mood, anxiety/panic attacks, agitation/irritability/anger, self-harm risk, and thoughts/risk of suicide within normal limits.] Client Response/Progress/Benefit: [ Patient was engaged and open to the discussion. Patient reported his mood to be ?better?. Patients first win was that his and him was able to have a conversation for the first time in 30 days. He stated that he and his don?t ever talk because they always fight. 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 Patients stressor is that while he and his were talking, his was a little combative, but it was because she was concerned for his safety. He stated he doesn?t like that she wants him not to work so much. Patient was interactive and respectful with other group members about their mental wins and stressors. Patient benefited from the discussion by listening to feedback and giving input on his peer?s stressors and mental health wins. Patient will continue with IOP treatment to help develop healthy skills, promote mood stability, and improve distress tolerance. ] Narrative Note: []
--- NOTE | 2023-07-12 10:15 | BH.SGPN.GN ---
Behaviors/Verbalizations/Mental Status: []Patient was alert and oriented, casually dressed and groomed. Eye contact was good, motor activity normal, speech within normal limits. Affect congruent, mood content. Thoughts linear, logical, no signs of hallucinations or delusion Client Response/Progress/Benefit: [] Pt was an active participant in the group discussions AEB providing input and taking notes. Attentive during psychoeducation Goal Setting. Participated during the discussion on common barriers lack of motivation, making excuses, not feeling good enough, and lack of support. Group also identified benefits sense of purpose, improved self-confidence, more motivation for other goals, and improved mental health. Pt reports struggling specifically with barriers of avoiding things when depressed and negative thinking. Benefited from increased awareness of mental health benefits of goals as well as psychoeducation on SMART goal criteria. Will continue in IOP to increase mood stability, improve ability to combat distortions, and reinforce healthy coping skills. ? Narrative Note: []
--- NOTE | 2023-07-12 12:17 | PCM.BH.PN_ITS ---
Progress Note Progress Note: History of Present Illness/Interim History: The patient is a 67-year-old male with a history of bipolar 1 disorder with current episode hypomanic who is seen in follow-up at the [facility]. I last saw the patient 1 week ago and at that time his Latuda was increased from 20 to 40 mg p.o. daily with food. The patient seemed to possibly be hypomanic at the time and described his mood at a 5-6 level. The patient states that 5 is euthymic and 4 is euthymic and 3 is very depressed. The patient is sleeping 7 or 8 hours a night and he has some fatigue during the day although at times he has a lot of energy overall. He denies passive thoughts of , anhedonia, suicidal ideation, plan for suicide, homicidal ideation, hallucinations or delusions. He denies irritability. He denies any risky behavior or increased spending or racing thoughts. The patient does not feel that his possible hypomania has increased in the past week since increasing the Latuda dose. Current Psychiatric Medications: [] Wylie carbonate 300 mg every morning and 600 mg p.o. nightly. On this for 35 years and labs checked regularly and his levels run between 0.6 and 0.9.; Latuda 40 mg p.o. daily with food (on this dose for 1 week). Mental Status Examination: [] The patient is a 67-year-old male who appears younger than stated age and is seen wearing glasses and is ambulatory with a normal gait. He has no psychomotor agitation or retardation and is casually dressed and groomed with good hygiene. He is cooperative and pleasant during the interview. Eye contact is good and speech is overall minimally mildly rapid but not pressured. Speech is fluid and normal rhythm. Mood is euthymic. Affect is full and normal. Thought process is goal-directed and organized. Patient remains overinclusive at times but possibly better than last visit 1 week ago. Thought content: There is no evidence of passive thoughts of , suicidal ideation, plan for suicide, homicidal ideation, hallucinations, delusions or grandiosity. Reality testing is intact. Intelligence is above average. Judgment is intact. Insight is good. Diagnoses: [] 1. Bipolar 1 disorder, most recent episode hypomanic (F 31.0) 2. Panic disorder 3. Generalized anxiety disorder 4. Obstructive sleep apnea using CPAP 5. Primary support and work issues Plan: [] The patient will continue the IOP program as the structure, support, education and group therapy will hopefully prevent worsening of the patient's symptoms that could require hospitalization. He felt safe during the interview and if it anytime he does not feel safe he will let us know or go to the emergency room. The risk, options, possible complications and side effects of the medications were again discussed with the patient and he understands accepts these. Long discussion was had with the patient that if the Latuda 20 mg dose caused him to switch into hypomania this could increase it for that reason I recommend that we consider stopping the Latuda and changing to something else. The patient states that he has been so depressed for so long and feels like since the Latuda was increased to 40 mg that he has not gotten any worse and feels that this may benefit him. He strongly requests to continue the Latuda and closely observe his mood. In addition he will be seeing the staff numerous times a week and we can stop the Latuda at any time if his symptoms worsen. I agreed to continue Latuda for now and closely observe him. He understands that it may be weeks or months before we know if this dose is helping him cycle less often. If he becomes more hypomanic or manic he agrees to let us know and stop the Latuda immediately. He will continue to follow-up with his outpatient providers.
--- NOTE | 2023-07-12 13:55 | BH.TPR ---
Treatment Plan Review Demographics Date of Admission:: 06/20/23 Date of Treatment Plan Review:: 07/12/23 Admitting Diagnoses:: Diagnosis #1:: Bipolar I most recent episode depression, severe without psychosis F31.4 Diagnosis #2:: Panic Disorder Diagnosis #3:: KSENIA Current Diagnoses:: Diagnosis #1:: Bipolar 1 disorder, current episode hypomanic (F 31.0) Diagnosis #2:: Panic Disorder Diagnosis #3:: KSENIA Patient Status Patient's Response to Treatment:: Patient has responded well to treatment as evidenced by consistent attendance, consistently taking medications, and providing feedback during group discussions. Status of Current Problems and Symptoms: Patient is currently in a hypomanic state which seems to be triggered by being put on Latuda. Patient reported he is feeling happy, increased motivation, and has good energy. Patient stated yesterday was the first night in which he had more energy that prevented him from going to bed at his typical bedtime. Patient reported he identifies himself as a 6 on his personal mental health scale which he indicates is euthymic and happy. Patient stated he does not believe he is hypomanic at this time. However per observations by staff patient does seem to be exhibiting more pressured speech, rambling, and at times tangential. Patient at this time reports increased energy and mood has not been impacting his daily functioning. Per DSM-V cross cutting measure patient reports a 17% decrease in overall symptoms. Progress Problem #1: Problem Name:: Depression Status of Goals:: obj 1 - met, ongoing work encouraged. Patient is able to identify healthy coping skills to help manage his depression like opposite action, goal setting, change in environment, and engaging in hobbies. Patient does struggle with application of skills outside of treatment environment. Patient's mood boost currently could be attributed to medication change that is supposed to help with depression. obj 2 -not met. Patient does seem to struggle with continued negative and depressive thought patterns which can negatively impact his mood. At times his depressed thoughts and negative thoughts increase his agitation and anger. Team Recommendations:: Team recommends therapist to closely monitor client's current symptoms to ensure he does not become manic. The plan from [facility] psychiatrist is to adjust medications if client reports any continued hypomanic or manic symptoms. Team also recommends continue current goals and objectives to demonstrate consistent improvement and maintenance of progress. Problem #2: Problem Name:: Anxiety Status of Goals:: obj 1 -not met. Patient cannot identify calming skills like taking a walk, being active, breathing tools, and grounding. Patient does well with finding projects and activities to keep him busy when feeling anxious but struggles with applying calming skills like breathing and grounding tools. obj 2 -not met. Per DSM-V cross cutting measures his anxiety has reduced by 20%. Team Recommendations:: Team recommends therapist to closely monitor client's current symptoms to ensure he does not become manic. The plan from [facility] psychiatrist is to adjust medications if client reports any continued hypomanic or manic symptoms. Team also recommends continue current goals and objectives to demonstrate consistent improvement and maintenance of progress.
--- NOTE | 2023-07-12 14:06 | BH.MDN ---
Multi-Disciplinary Note Note 45-min Individual: Time Started:: 11:15 Date: 07/12/23 Purpose of session/treatment goals addressed:: Purpose of session was to address goals 1 and 2 from [facility]. Eye Contact:: Good Motor Activity:: Appropriate Appearance:: Casual Speech:: Rapid Mood:: Euthymic and Other (elevated mood) Affect:: Bright Thoughts:: Logical and No evidence of hallucinations/delusions noted Staff Interventions:: thought challenging, CBT techniques, strengths perspective, goal setting and other (discussed hypomanic symptoms) Client Response:: Client reported he is continuing to do well with adjustment to new medication that is supposed to help with his depression. Client stated on his mood scale he identifies himself as a 6 . Client reported he is feeling happy, increased motivation, and has good energy. Client stated when meeting with [facility] psychiatrist she expressed concern about client potentially showing signs of hypomania. Client reported he does not believe he is hypomanic at this time. Client stated yesterday evening was the first night that he did have lot of energy that kept him from going to sleep until midnight and was awake at 5am, feeling energized. Client reported prior to last night he had been sleeping 7 to 8 hours. Client agreed to track his sleep and will contact [facility] if his sleep is getting worse or if he notices any additional hypomanic symptoms. Client stated since his mood has improved he has been communicating more with his . 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 Client stated his is more open to discussions about potentially buying client's parents property. Client reported this has given them more to talk about. Risks/Concerns:: Denies suicidal ideation, plan, or intention. Future oriented. Progress Toward Goals/Plan:: Progress noted with client reporting improved mood, increased energy, decreased depression, and improved daily functioning. Plan is to have client contact [facility] staff if he notices any hypomanic symptoms. If hypomania is experienced staff will contact [facility] psychiatrist for medication adjustment. Client expresses understanding of plan and is agreeable to contact staff if he notices any signs of hypomania. Client is to continue IOP to maintain mood stability, monitor pt during medication adjustment, and prevent decompensation. Time Stopped:: 12:00
--- NOTE | 2023-07-13 09:05 | BH.SGPN.GN ---
Behaviors/Verbalizations/Mental Status: []Eye contact is good. Motor activity is appropriate. Appearance is casual. Speech is tangential. Mood is anxious. Affect is euthymic. Thoughts are linear and logical. No evidence of psychosis. Reviewed daily check in sheet and no reports of suicidal ideations or intent. Client Response/Progress/Benefit: []Pt responded well to session, attentive, but oversharing at times. Pt reports feeling excited this morning because he gets to get out of the house today and engage in some of his hobbies. Pt stated he is also feeling excited because pt feels his medication is working in regulating his moods and allowing pt to feel motivated without getting manic. Pt reports he has been in mental health treatment for 35 years and he feels he is finally on the right medication. Pt's stressor today is that he is having some issues with his sleep doctor and he wants to change providers. Pt appeared to benefit from reflecting on his progress. Pt will continue IOP tx to promote mood stability, improve self-awareness, and increase self-confidence. Narrative Note: []
--- NOTE | 2023-07-13 10:15 | BH.SGPN.GN ---
Behaviors/Verbalizations/Mental Status: []Pt alert and oriented, casually dressed and groomed. Eye contact good. Motor activity appropriate. Speech within normal limits. Affect congruent, mood anxious, distracted. Thoughts linear, logical, no signs of hallucinations or delusions. Client Response/Progress/Benefit: []Pt was an active participant in group discussion and activity. Attentive during psychoeducation. Along with peers, pt was able to identify barriers to taking action in their life. Identified several symptoms and stressors that he feels are holding him back from progress such as feeling restrained by other's opinions and decisions, a need to do it on my own , and lack of energy at times. Stated these things have kept pt from managing conflict in healthy ways, reaching personal goals, asking for help. Pt shared that he wants to begin addressing the impact being told by others what she should be doing and not making his own independent choices has had on his ability to take action. Benefited from increased self-awareness of obstacles. Will continue IOP tx to continue to promote mood stability and consistent skill application, and further reduce distorted thinking. Narrative Note: []
--- NOTE | 2023-07-18 10:15 | BH.SGPN.GN ---
Behaviors/Verbalizations/Mental Status: []Eye contact is good. Alert and oriented. Motor activity is restless. Appearance is casual. grooming is appropriate. Speech is Appropriate. Mood varied from bright to irritable. Client identified feeling manic today. Affect is constricted. Thoughts are linear and logical. No evidence of psychosis or hallucinations. Client Response/Progress/Benefit: []Client engaged in group session AEB listening to others, taking notes throughout, and contributing to group discussion. Group attentive during psychoeducation about emotion regulation and dysregulation. Appeared to connect with scenarios reviewed in group on emotion regulation vs dysregulation. Engaged in activity, did struggle with some irritability during activity, but was able to recover quickly. Client benefited from session by gaining an increased understanding on the importance of managing emotions. Client to continue IOP to stabilize mood, stabilize medications, and prevent decompensation.
--- NOTE | 2023-07-18 11:15 | BH.SGPN.GN ---
Behaviors/Verbalizations/Mental Status: []Pt alert and oriented, casually dressed and groomed. Eye contact fair. Motor activity restless. Speech within normal limits. Affect congruent, mood euthymic. Thoughts linear, logical, no signs of hallucinations or delusions. Client Response/Progress/Benefit: [] Pt engaged in session AEB Pt listening attentively to peers and providing input. Attentive during psychoeducation on 4 zones of regulation. Pt able to identify feelings and behaviors for each zone. Pt identified coping skills one can use to support self in each zone. Identified one skill from each zone he can practice which included: getting outside, wins journal, and breathing. Benefited from increased education on zones of regulation or stages of alertness for emotions and healthy coping skills to use for each zone. Will continue IOP tx to stabilize moods, increase healthy coping, and prevent decompensation.
--- NOTE | 2023-07-18 15:55 | BH.MDN_ITS ---
Multi-Disciplinary Note Note Family: Time Started:: 12:15 Date: 07/18/23 Purpose of session/treatment goals addressed:: Purpose of session was to meet with client and his to answer his 's questions and discuss medi cation plan due to client becoming manic. Eye Contact:: Fair Motor Activity:: Restless Appearance:: Casual Speech:: Pressured, Rambling and Rapid Mood:: Euthymic, Anxious and Irritable Affect:: Labile Thoughts:: Racing and No evidence of hallucinations/delusions noted Staff Interventions:: CBT techniques, rapport building, strengths perspective, goal setting and taught coping skills Client Response:: Client was joined by his Matilde for session today. Matilde wanted to have a support family session to ask [facility] therapist a few questions. Matilde stated she recognizes looking back the client we're starting to get manic after about five to seven days of being on 20 milligrams of latuda. Matilde stated in hindsight she realizes she should have called to communicate to [facility] staff that she was concerned about client's starting to get manic on the new medication. Maitlde stated it is now apparent to most people that have had an interaction with client that he is manic because he talks faster, has more ideas that are always logical, and has been more irritable in reactive to others. Therapist brought I hope your director into session to explain medication plan ordered by Dr. Horta the [facility] psychiatrist to help bring client back down from his manic episode. Matilde and client both express understanding of new medication plan and agreeable to start this plan today. Client was provided with a written handout of what he needs to do for his medication adjustments. Client understands he will meet with [facility] tomorrow to make sure he completely understands the plan. Read this stated one thing she wanted answered during session today was whether it was a good idea for them to start couples counseling right now while neither of them are completely ready and stable. Suzanna shared she has been seeking her own treatment and she personally does not feel ready to start couples counseling and doesn't believe it would be a good time. Through discussion both client and Matilde agreed to wait on seeking couples counseling until client was more stable with his moods and Matilde felt more ready to begin that process. Therapist expressed they could still work on their relationship currently while waiting to start couples counseling bye noting appreciation for each other and trying to spend time on things they both enjoy. Read a talked a lot about the importance of her setting boundaries in no longer trying to the client's therapist because she recognizes it's not healthy for either of them. Client became somewhat agitated throughout session and would state that his ?is not supportive?. Therapist attempted to help clients see that currently in a manic state he is more irritable and agitated which results in him perceiving information in a negative way. Therapist helped clients see that his is supportive in many areas of his life by attending family to family sessions To learn more about bipolar disorder, going to her own counseling, and joining a support group online to get support from other spouses that have bipolar disorder. With some assistance from therapist client could recognize that he does tend to jump to the conclusion that she's not supportive because she won't son alone to buy his parents property. Client recognizes that she has done a lot for him and has been with him for over 40 years despite their ups and downs and his ups and downs during cycling of mood. Matilde and client ex pressed understanding of plan for the week to help bring client back to a more stable mood. Risks/Concerns:: Client is currently in a manic state from reaction to new medication, Latuda. Client is starting new medication regime that [facility] psychiatrist has ordered that should help bring client back down to a stable mood. Client does report suicidal thoughts, denies plan or intention. Client does not have access to firearms or other lethal items. Client reports ability to maintain safety. Progress Toward Goals/Plan:: Client currently in manic state after reaction to new medication. Client is starting new medication regime tonight to help bring client back down from patricio. Client will continue in [facility] to help sta bilize his medications and stabilize his moods. Time Stopped:: 13:45
--- NOTE | 2023-07-19 11:29 | PCM.BH.PN ---
Progress Note Progress Note: History of Present Illness/Interim History: The patient is a 67-year-old male with a history of bipolar 1 disorder with current episode hypomanic who is seen in follow-up at the [facility]. Last saw the patient 1 week ago and at that time we felt that he had become hypomanic (after being severely depressed) about 1 week after starting Latuda at 20 mg daily. The patient was seen with his by the staff on July 18, 2023 and the patient's felt that he was also becoming hypomanic and that the severity was increasing and approaching mild patricio. The patient states that he was still sleeping however 5 to 6 hours a night but his mood he described yesterday and and today in our interview as troubled and according to staff the patient is mildly irritable. The patient agreed yesterday to discontinue his Latuda and to start Zyprexa 5 mg at bedtime and to increase his lithium dose. The patient states that last night he slept 7 to 9 hours total and feels tired today but is able to function. He denies passive thoughts of , suicidal ideation, plan for suicide, homicidal ideation, hallucinations or delusions. So far he is tolerating the increased dose of lithium well and has no tremor or other side effects. Current Psychiatric Medications: [] Astatula carbonate 900 mg p.o. nightly and 300 mg p.o. q. morning (increased 1 day ago from 900 mg total); Latuda discontinued 1 day ago after being on it for less than 2 weeks. Zyprexa 5 mg p.o. nightly (x 1 day) Mental Status Examination: [] The patient is a 67-year-old male who appears younger than stated age and is seen wearing glasses and has no psychomotor agitation or retardation. He is ambulatory with a normal gait. He is casually dressed and groomed with good hygiene. He is cooperative during the interview. Eye contact is good and speech is mildly rapid and may be minimally pressured. Speech is normal rhythm and fluent. Mood is troubled and mildly irritable. Affect is full and normal. Thought process is goal-directed and organized. Patient is mildly overinclusive at times but is aware of it and does not need to be redirected today. Thought content: The patient is disappointed that he became hypomanic on Latuda and it seemed to worsen. He is worried he will become depressed again. There is no evidence of passive thoughts of , suicidal ideation, plan for suicide, homicidal ideation, hallucinations, delusions or grandiosity. Reality testing is intact. Intelligence is above average. Judgment is intact. Insight is good. Impulsivity is moderate. Diagnoses: [] 1. Bipolar 1 disorder, most recent episode hypomanic (F 31.0) 2. Panic disorder 3. Generalized anxiety disorder 4. Obstructive sleep apnea using CPAP 5. Primary support and work issues Plan: [] The patient will continue the IOP as the structure, support, and worsening of the patient's symptoms that could require hospitalization. He felt safe during the interview and if it anytime he does not feel safe he will let us know or go to the emergency room. The risks, options, possible complications and side effects of the medications were again discussed with the patient and he understands accepts these. The patient agrees to get a lithium level and renal panel on Monday, July 24, 2023, about 5 or 6 days after increasing the lithium dose to 1200 mg total daily. In addition he agrees to stay on the Zyprexa 5 mg at at bedtime to help with the sleep issue and hypomania and anxiety. When we are sure the patient is no longer becoming hypomanic or worse we will wean the Zyprexa and possibly try Geodon or Seroquel but the patient does not want weight gain long-term and insurance would not pay for Vraylar. He took Depakote in the past and did not tolerate it. I will see the patient in follow-up in 1 week and if symptoms worsen he will let us know or go to the emergency room.
== END 2023-07-19 23:59 ==
LOC: BHIOP 08:00
PROVIDERS: PCP Family Medicine; Referring Provider Psychiatry & Neurology Psychiatry; Visit Provider Psychiatry & Neurology Psychiatry
DX: F31.0 Bipolar disorder, current episode hypomanic (principal); F41.0 Panic disorder [episodic paroxysmal anxiety]; F41.1 Generalized anxiety disorder; G47.33 Obstructive sleep apnea (adult) (pediatric); Z79.899 Other long term (current) drug therapy
CPT/HCPCS: S9480; 90834; 90837; 90847; 90853

== ENCOUNTER 2023-07-20 07:49 | Outpatient (RCR) | payer MEDICARE, SELFPAY ==
[2023-07-20 00:32] VITALS: BP 128/84; PULSE 55
--- NOTE | 2023-07-21 15:45 | BH.MDN ---
Multi-Disciplinary Note Note 60-min Individual: Time Started:: 09:30 Date: 07/21/23 Purpose of session/treatment goals addressed:: Purpose of session was to assess client's current mood and identify plan for weekend. Eye Contact:: Good Motor Activity:: Restless and Other (shaky hands) Appearance:: Casual Speech:: Pressured, Tangential, Rambling and Rapid Mood:: Euthymic, Irritable and Dysthymic Affect:: Labile Thoughts:: Racing and No evidence of hallucinations/delusions noted Staff Interventions:: thought challenging, CBT techniques, strengths perspective, goal setting and taught coping skills Client Response:: Client reported that he was struggling today we're feeling down but still having lots of energy. Client stated is continuing to struggle with being very agitated with others and did not have a positive day with his yesterday. Client reported feeling lots of anger towards his because she continues to not support his desire to buy his parents house. Therapist attempted to challenge clients thoughts and help him see what his does do to provide support. Client struggle with staying on topic and often had tangent tile thoughts and at times loose associations. Therapist brought in a chart for client to look at and fill out together in which he was asked to [place] symptoms he experiences when he's in a severe manic episode, moderate episode, and mild manic episode. With assistance from therapist client able to [place] each symptom that he experiences when manic. Therapist explained to client the importance of being able to understand his patricio and know whether he's experiencing mild, moderate, or severe symptoms. Therapist also provided handout that listed common symptoms associated with a mild, moderate, and severe symptoms of depression. Therapist asked client to look at this paper for homework over the weekend and [place] which symptoms he experiences in those categories. Client stated looking at his chart for patricio he thought it was helpful for him to better understand what his symptoms look like. Client reported he still wants to use his own number chart to identify where he's at but recognizes having different ways of talking about his patricio or depression could help his support system. Therapist encouraged client to share provided chart with his so she could understand and be on the lookout for different symptoms of patricio. Therapist provide a secret education to client that despite not being able to control that he is manic he could have control over what he does to prevent unhealthy behaviors while in this state. Client struggled with connecting to this perspective continuing to go back to the fact he's been doing this for 35 years and he didn't ask for it. Therapist provided an example that one thing he could do to help decrease anger outbursts is to not talk to his about the potential house projects if they were to buy his parents property. Therapist explained he knows currently this is a trigger for him and it could be a good idea to avoid this topic until he feels more stable. Client seemed to understand this and verbalized being open to this idea. Therapist elicited clients planned for the weekend to ensure he has plans on what he can do so that he doesn't deteriorate any relationships due to feeling more irritable and having less of a filter. Client stated he has a very busy weekend and feels like it will be helpful for him to have things to do. Client reported he does plan to have space from his over the weekend so that he doesn't have any anger outbursts towards her. Risks/Concerns:: Client is currently in a manic episode. Client was put on new medications on Monday to help stabilize his moods and bring him down from patricio. Client does report thoughts of suicide, but denies suicidal intention and plan. Client feels able to maintain safety. Client does not have access to firearms. Client's is aware of client's current mood state. Progress Toward Goals/Plan:: Progress decompensated due to client being in a manic episode. Client is more irritable during his patricio which has led him to say hurtful things to others. Client does appear to be in a mixed episode today AEB client talking with more depressed themes, but reporting lots of energy, little sleep, racing thoughts, and talking fast. Plan is for client to continue IOP to stabilize moods and prevent decompensation. Time Stopped:: 11:30
--- NOTE | 2023-07-24 10:10 | BH.SGPN.GN ---
Behaviors/Verbalizations/Mental Status: []Pt alert and oriented, causally dressed and groomed. Eye contact good. Motor activity appropriate. Speech within normal limits. Affect congruent, mood euthymic. Thoughts linear, logical, no signs of hallucinations or delusions. Client Response/Progress/Benefit: [] Pt was actively engaged, providing input, and taking notes throughout session. Connected with the topic of pitfalls and listened to group discussion on internal and external barriers that prevent from choosing a healthier path to mental wellness. Group worked together to identify examples of personal internal pitfalls. Pt engaged in activity and shared ideas throughout. Pt showed emotion regulation throughout activity even when others were getting frustrated. Pt benefited from group as pt learned to better identify and normalize potential barriers to improving mental health symptoms. Pt also gained awareness of the difference between external triggers and self-sabotaging behaviors. Pt will continue IOP tx to stabilize moods, increase healthy coping, and prevent decompensation.
--- NOTE | 2023-07-24 14:59 | BH.MDN ---
Multi-Disciplinary Note Note 60-min Individual: Time Started:: 11:40 Date: 07/24/23 Purpose of session/treatment goals addressed:: Purpose of session was to address goals 1 and 2 from MTP. Eye Contact:: Fair Motor Activity:: Appropriate Appearance:: Neat and Casual Speech:: Appropriate, Rambling and Rapid Mood:: Other (Hypomanic) Affect:: Congruent Thoughts:: Logical, Racing and No evidence of hallucinations/delusions noted Staff Interventions:: thought challenging, CBT techniques, strengths perspective, goal setting and other (reviewed mood chart) Client Response:: Client reported overall his weekend went well despite still feeling like he is manic. Client stated he was better on Monday and Monday compared to how he was on Monday. Client connected with therapist reflection that he appeared to be experiencing manic-like symptoms and depressed symptoms simultaneously. Client and therapist discussed how Monday seemed to be a mixed episode. Client stated he agrees he can struggle with both having lots of energy, talking fast, lots of ideas and at the same time feeling angry, down mood, and thoughts of suicide. Client reported he has been having thoughts of suicide which he stated was hard to talk about but denies intention to kill himself or plan. Client stated currently his family and friends at greater than his mental struggle which serves as a protective factor for not following through with thoughts of wanting to . Client agreeable to communicate to therapist or his if his thoughts of suicide were to worsen and he was unsure if to keep himself safe. Client stated as of now he feels like he can maintain safety. Client stated he does feel some improvement with functioning and mood compared to Monday. Client noticed his hand shaking has significantly improved today. Client reported he still has lots of energy and has been sleeping on average about 4 to 5 hours a night over the weekend. Client noted some decrease in agitation today. Client still very focused on the idea of purchasing his mom and dad's house to remodel and make it a Airbnb. Client became very agitated about the thought of his not supporting this project. Client stated he will not let his stop him from doing this project. Therapist encouraged client to not make any decisions without talking them through with his because his impulsive decisions could be detrimental to their relationship. Risks/Concerns:: Client reports suicidal thoughts denies suicidal intention or plan. Client said his family and friends are his protective factors. Client does not have access to any guns. Future oriented. Feels able to maintain safety. Progress Toward Goals/Plan:: Progress noted with client demonstrating improved mood compared to Monday's session, decreased hand tremors and shaking, and appearing to slightly come down from his patricio. Client seemed less agitated during session today and throughout the IOP day. Client still appeared to have racing thoughts but showed improvement with being able to articulate his thoughts and not being tangential compared to when I saw him on Monday. Client still appears to be hypomanic. Client reports consistently taking medications as prescribed. Client is scheduled to see IOP psychiatrist on Monday. Plan is for client to continue IOP to stabilize moods, improve functioning, and prevent decompensation. Time Stopped:: 12:35
--- NOTE | 2023-07-25 09:05 | BH.SGPN.GN ---
Behaviors/Verbalizations/Mental Status: [] Eye contact is good. Motor activity is appropriate. Appearance is casual. Speech is pressured/rapid. Mood is euthymic. Affect is full. Thoughts are linear and logical. No evidence of psychosis. Reviewed daily check in sheet and no reports of suicidal ideations or intent. Hypomanic for past week. Client Response/Progress/Benefit: [] Pt was an active participant in group discussion. Attentive. Provided appropriate feedback. On topic and needed limited redirection. Insight into increased irritability directed at others in the past week. States that he apologized to his this AM. States that he slept 6-7 hours last night which suggests that his mood is stabilizing. He discussed at length a new chart that he and his program therapist have developed to better track his mood. The chart is going is 0-10 and is a helpful way for him to identify whether he is depressed, baseline, hypomanic, or manic. He appears to be very proud of this chart and finds it helpful. Progress noted as pt's speech is less rapid/pressured today. Easily redirectable and had insight when he was talking excessively. Smiling and engagement with peers. Benefited from group support, encouragement, and feedback. Will continue in IOP to maintain safety, stabize mood, and improve functioning. Narrative Note: []
--- NOTE | 2023-07-25 11:10 | BH.SGPN.GN ---
Behaviors/Verbalizations/Mental Status: []Pt alert and oriented, neatly dressed and groomed. Eye contact good. Motor activity appropriate. Speech tangential. Affect congruent, mood dysthymic. Thoughts linear, logical, no signs of hallucinations or delusions. Client Response/Progress/Benefit: [] Pt responded well to session, contributing to discussion, and engaged during the activity. Attentive during discussion on the quote. Group identified the benefits of change and worked with the group to identify barriers. Pt?s barriers to change included: fear of failure and negative thinking. Pt participated along with group in activity where they identified and discussed the emotions related to change. Pt provided examples of how pt has benefitted from change even though pt is not fond of change. Benefited from increased awareness and understanding of emotions, benefits, and barriers related to change. Pt will continue IOP tx to prevent decompensation, improve daily functioning, and increase emotional awareness. Narrative Note: []
--- NOTE | 2023-07-25 11:15 | BH.SGPN.GN ---
Behaviors/Verbalizations/Mental Status: [] Eye contact is good. Motor activity is appropriate. Appearance is casual. Speech is pressued. Mood is hypomanic. Affect is full. Thoughts are linear and logical. No evidence of psychosis. Client Response/Progress/Benefit: [] Pt responded well to session, attentive. Did well to engage in and process activity. Pt worked with group to relate the strategies used to overcome barriers in the activity to managing change in own life. Pt identified wanting to work on temper, ager management, and hypomania . Pt identified that she is the preparation phase. Benefited from increased awareness of changes desired and current stage of change. Will continue in IOP to prevent decompensation, stabilize mood, and improve functioing. Narrative Note: []
--- NOTE | 2023-07-26 09:05 | BH.SGPN.GN ---
Behaviors/Verbalizations/Mental Status: [Patient was alert and oriented, appropriately dressed and groomed. Eye contact was good, motor activity normal, speech within normal limits. Affect congruent, mood content. Thoughts linear, logical, no signs of hallucinations or delusions. Reviewed Patients symptom tracker and the patient reports depressed mood, anxiety/panic attacks, agitation/irritability/anger, self-harm urges, and thoughts/risk of suicide within normal limits.] Client Response/Progress/Benefit: [Patient was engaged and open to the discussion. Patient reported his mood to be ?Angry?. Patients first win is that he went to his sister?s house to sit and had dinner. They talked about what they were going to do about his moms land. Patients second win was that he was able to pray with his family and they let him do it. Patient reported that his stressor is that an appraisal agent is coming to appraise his moms old land while he will be in [place]. Patient was interactive and respectful with other group members about their mental wins and stressors. Patient benefited from the discussion by listening to feedback and giving input on his peer?s stressors and mental health wins. Patient will continue with IOP treatment to help develop healthy skills, promote mood stability, and improve distress tolerance. ] Narrative Note: []
--- NOTE | 2023-07-26 11:15 | BH.SGPN.GN ---
Behaviors/Verbalizations/Mental Status: [] Client alert and oriented, casually dressed and groomed. Eye contact good. Motor activity appropriate, at times somewhat restless. Speech within normal limits. Affect congruent, mood depressed. Thoughts linear, logical, no signs of hallucinations or delusions. Client Response/Progress/Benefit: []Client responded well to session, engaged and taking notes throughout. Worked with group to connect components of the experiential activity with characteristics of healthy and unhealthy relationships. Attentive during psychoeducation about characteristics of healthy, unhealthy, and abusive relationships. Client self-reflected on healthy and potentially unhealthy components of one of his current relationships; however, elected not to share this with the group. Did report wanting to work on improving patience within his interpersonal relationships. Appeared to benefit from identifying the current healthy relationship attributes and an area client wants to work on to build healthier relationships. Client to continue IOP to increase healthy coping skill application, stabilize mood, and prevent decompensation. Narrative Note: []
--- NOTE | 2023-07-26 12:00 | BH.MDN_ITS ---
Multi-Disciplinary Note Note 45-min Individual: Time Started:: 12:00 Date: 07/26/23 Purpose of session/treatment goals addressed:: Pt reported elevated scores on his daily symptom tracker today. Met with patient to assess risk. Eye Contact:: Good Motor Activity:: Appropriate Appearance:: Casual Speech:: Pressured and Rapid Mood:: Irritable Affect:: Congruent Thoughts:: Racing Staff Interventions:: thought challenging and completed risk assessment / safety planning (Denies active SI, plan, or intent. Contracts for safety. ) Client Response:: Pt reports that he had verbal argument with his this AM which escalated his anger. I told her I didn't want to talk about it however she didn't listen . They have been at odds over a real estate investment since April. According to pt she says she is supportive however doesn't agree ? that doesn't make sense . Therapist utilized examples of individuals being supportive of spouses however not agreeing with their decisions and pt appears to better understand her perspective. Oh that makes sense I get it . This decreased his irritability. Long-standing martial conflict and poor communication as they are set to begin marriage counseling soon. When hyper- focused he admits that he struggles to see freedman areas and thinks in absolutes. When processing the argument with therapist he was able to understand her concerns and states she did apologize for some things which is nice . When asked about his elevated scores on suicidal ideations and intent he states I'm not going to kill myself . States that he at times gets confused with our scales as he primary uses his own scale (0-10) with 0 being suicidal and 10 being manic. States that he is at a 6 today which is hypomanic. When I get upset I think about not wanting to be alive however it never gets further than that . Fu ture-oriented. Going on trip to [place] this weekend and is looking forward to it. He has plans to visit his daughter this evening as well. He met with all his siblings yesterday (they are working on recently mother's estate) and states it went well . Disclosed recent mood instability with them and they were supportive . Risks/Concerns:: refer above. Denies active SI, plan, or intent. Reports passive thoughts of and survival ambivalence this AM after argument with . Future-oriented. Protective factors. Passive thoughts occurred this AM prior to group however have since dissipated. Situational trigger. Does not present as imminent risk to himself based on pt reports. Progress Toward Goals/Plan:: Progress has been erratic in IOP as pt was recently hypomanic. Mood has been stabilizing in the past few days, however historically does have mixed episodes. Refer to psychiatrist note from today for more details. Therapist explained our daily symptom scales in-depth and his scores would more accurately reflect 2/5 for thoughts of not wanting to be in existence and a 0/5 for intent. Plans to attend [facility] tomorrow. Time Stopped:: 12:45
--- NOTE | 2023-07-26 12:11 | PCM.BH.PN ---
Progress Note Progress Note: History of Present Illness/Interim History: The patient is a 67-year-old male with a history of bipolar 1 disorder with current episode hypomanic who is seen in follow-up at the [facility] behavioral health IOP. I last saw the patient 1 week ago and at this point he has been on his Zyprexa for 1 week. Patient became hypomanic in the first week after starting Latuda at 20 mg daily which was prescribed for bipolar severe depression. The patient states that he feels he is somewhat less hot hypomanic now overall but he is having significant marital issues with his and so sometimes he is unclear if he is just angry at his or if he is actually hypomanic. According to the staff the patient presentation and attitude has improved over the last few days. His energy level remains good but he is now sleeping 6 or 7 hours a night. He feels he is gaining insight into his issues and he now apologizes to his according to the staff. He remains angry at his however for telling her family that he is hypomanic and also for the fact that she does not want him to buy a family farm property that he has planned on buying for years. He denies passive thoughts of , suicidal ideation, plan for suicide, homicidal ideation, hallucinations or delusions. He has a mild tremor from the increased dose of lithium and he did obtain his labs but the results are pending. Labs were done 2 days ago. Current Psychiatric Medications: [] Alston carbonate 900 mg p.o. nightly and 300 mg p.o. in the morning (increased 1 week ago); Zyprexa 5 mg p.o. nightly (x 1 week) Mental Status Examination: [] Patient is a 67-year-old male who appears younger than stated age and is seen wearing glasses and without psychomotor agitation or retardation. He is casually dressed and groomed with good hygiene. He is cooperative and pleasant during the interview but expresses anger at his for the above issues. Eye contact is good and speech remains mildly rapid and minimally pressured at times. Speech is normal rhythm and fluent however. Mood is irritable at . Affect is full and normal. Thought process is goal-directed and organized. Patient remains mildly overinclusive but is aware of it and does not need to be redirected today. Thought content: The patient is angry at his for reasons noted above. There is no evidence of passive thoughts of , suicidal ideation, plan for suicide, homicidal ideation, hallucinations or delusions or grandiosity. Reality testing is intact. Intelligence is above average. Judgment is intact. Insight is fair to good. Impulsivity is moderate. Diagnoses: [] 1. Bipolar 1 disorder, most recent episode hypomanic (F31.0) 2. Panic disorder 3. Generalized anxiety disorder 4. Obstructive sleep apnea using CPAP 5. Primary support and work issues Plan: [] The patient will continue the IOP in behavioral health at [facility] as the structure, support, education and group therapy will hopefully prevent worsening of the patient's symptoms. He felt safe during the interview and if it anytime he does not feel safe he will let us know or go to the emergency room. The risk, options, possible complications and side effects of the medications were again discussed with the patient and he understands and accepts these. Patient will call or we will call to obtain his lithium lab results today. He agrees to increase his Zyprexa to 7.5 mg p.o. at bedtime. Prescription is sent in for this. I will see the patient in follow-up in 1 to 2 weeks and he will continue to follow-up with his outpatient providers.
--- NOTE | 2023-08-09 10:15 | BH.SGPN.GN ---
Behaviors/Verbalizations/Mental Status: [] Eye contact is good. Motor activity is appropriate. Appearance is casual. Speech is Appropriate. Mood is depressed. Affect is congruent. Thoughts are linear and logical. No evidence of psychosis. Client Response/Progress/Benefit: [] Pt was an active participant in group discussions AEB listening attentively to others and providing feedback at times. Participated in and was engaged during experiential activity. Able to relate activity to group topic of FOF. Engaged during interactive discussion on what failure means to the group in which peers identified and defined failure. Group was able to identify impact of fear of failure on mental health identifying that it can cause isolation, procrastination, resentment, and complacency . Attentive during interactive discussion on the role that FOF plays in mental wellness, depression, anxiety, and growth. Benefited from increased awareness of how the role that FOF plays in mental health and decision-making. Will continue in IOP maintain safety, stabilize mood, improve functioning, and increase healthy coping. Narrative Note: []
--- NOTE | 2023-08-09 11:10 | BH.SGPN.GN ---
Behaviors/Verbalizations/Mental Status: []Pt alert and oriented, neatly dressed and groomed. Eye contact good. Motor activity appropriate. Speech within normal limits. Affect congruent, mood focused. Thoughts linear, logical, no signs of hallucinations or delusions. Client Response/Progress/Benefit: [] ?Pt responded well to session, engaged in the experiential activity and attentive throughout group processing. Pt reported fear of failure has kept Pt from getting a new job and trying new hobbies. Pt completed fear of failure worksheet and was able to identify thoughts and behaviors that reinforce personal fear of failure including self-doubt, past failures, and negative/distorted thought patterns. Pt participated in group discussion regarding strategies to overcome fear of failure. Identified wanting to work on positive self-talk. Appeared to benefit from increased knowledge of strategies to combat fear of failure and gaining self-awareness. Pt will continue IOP tx to promote mood stability, reduce negative thinking patterns, and gain distress tolerance skills. Narrative Note: []
--- NOTE | 2023-08-09 11:43 | PCM.BH.PN ---
Progress Note Progress Note: History of Present Illness/Interim History: The patient is a 67-year-old male with a history of bipolar 1 disorder with current episode hypomanic who is seen in follow-up at the [facility]. I last saw the patient 2 weeks ago just before he left on vacation. The patient states that his vacation went very well and he enjoyed visiting his relatives. He feels his hypomania is slowly decreasing and he is almost at baseline . His also feels he is doing much better and he is much less irritable. The patient sleep has improved to 7 hours a night and he still naps during the day. He is getting along better with his and now even asked her questions about what concerns her. He saw marriage counselor with his several days ago and he feels it went well. He is not having any side effects on lithium except a minimal tremor. He denies passive thoughts of , suicidal ideation, homicidal ideation, plan for suicide, hallucinations or delusions. Current Psychiatric Medications: [] Cavour carbonate 900 mg p.o. nightly and 300 mg p.o. every morning. Zyprexa 7.5 mg p.o. nightly (increased 2 weeks ago). Laboratory: Patient's lithium labs were reviewed several days ago when they came back and the lithium level was therapeutic at 1.12 and the renal panel was completely within normal limits. TSH had a slight increase but not significant. These labs were discussed with the patient. Mental Status Examination: [] Patient is a 67-year-old male who appears younger than stated age and is casually dressed and groomed with good hygiene. He is ambulatory with a normal gait and has no psychomotor agitation or retardation. He is cooperative and pleasant during the interview. Eye contact is good and speech is mildly rapid but fluent with normal rhythm. No pressure. Mood is approaching baseline which she feels now is mild to minimal hypomania. Affect is full and normal. Thought processes goal-directed and organized. Patient is much less overinclusive and does not need to be redirected today. Thought content: Patient feels he is benefiting from the IOP and the medication changes. There is no evidence of passive thoughts of , suicidal ideation, plan for suicide, homicidal ideation, hallucinations or delusions. Reality testing is intact. Intelligence is above average. Judgment is intact. Insight is fair to good. Impulsivity is moderate. Diagnoses: [] 1. Bipolar 1 disorder, most recent episode hypomanic (F 31.0; resolving) 2. Panic disorder 3. Generalized anxiety disorder 4. Obstructive sleep apnea using CPAP 5. Primary support and work issues Plan: [] The patient will continue the IOP as the structure, support, education and group therapy have benefited the patient. He felt safe during the interview and if it anytime he does not feel safe he will let us know or go to the emergency room. The risks, options, complications and possible side effects of the medications were discussed with the patient again especially the side effects of lithium. No medication changes were made today. I will see the patient in 2 weeks and would recommend he stay on his Zyprexa for several months. If the patient becomes depressed on Zyprexa then I would consider changing it to another second-generation antipsychotic but the patient became manic on low doses of Latuda so we cannot use that medication. Vraylar was not affordable to him based on his insurance coverage but was preferred by me. He will continue to follow-up with his outpatient providers.
--- NOTE | 2023-08-09 14:59 | BH.MDN ---
Multi-Disciplinary Note Note 45-min Individual: Time Started:: 09:10 Date: 08/09/23 Purpose of session/treatment goals addressed:: Purpose of session was to address goals 1 and 2 from [facility]. Eye Contact:: Good Motor Activity:: Appropriate Appearance:: Casual Speech:: Appropriate Mood:: Euthymic and Anxious Affect:: Congruent Thoughts:: Linear, Logical and No evidence of hallucinations/delusions noted Staff Interventions:: CBT techniques, discharge planning, strengths perspective, goal setting and taught coping skills Client Response:: Client reported his trip to [place] overall went well . Client stated it was nice to get to visit with one of his favorite cousins. Client reported he did struggle with still being hypomanic some of the time while in [place], but stated he does feel like it is coming back down towards baseline. Client stated his sleep is starting to improve and while in [place] he was having days of getting close to 7 hours of sleep which is a huge improvement compared to getting 3-4 hours when he was manic. Client reported he still is struggling with having less of a filter due to irritability and was making unhelpful comments towards his at times during the trip. Client stated his irritability is still there, but improving compared to two weeks ago. Client stated he is anxious to see the [facility] psychiatrist today because wants to know the plan for his medications moving forward. Client reported he knows discharge from [facility] will be coming soon and will feel better if he has a plan for his medications. Client stated he does believe current medications are helping him from going down to deep depressed moments. Client reported he did struggle on this past Monday with getting out of bed until 11am, which is not his normal. However, client able to give self credit for getting out of bed and using opposite action. Client stated his is starting to feel closer to his baseline, which is something he hasn't experienced for a long time because he's been mostly depressed for over 5 years. Therapist encouraged client to continue tracking daily moods and keeping track of his sleep. Reviewed healthy skills that can help prevent him from saying hurtful things when irritable. Risks/Concerns:: Denies active suicidal ideation, plan or intention. Future oriented. Progress Toward Goals/Plan:: Progress noted with client reporting improved mood stability. Client still reporting recent hypomanic state, but noting starting to feel closer to his baseline. In session client's thoughts were more linear and speech was less pressured and rambling compared to last individual session. Client able to stay more on topic throughout session. Therapist encouraged client to schedule with his outpatient psychiatrist that is telehealth from [facility] for continued medication management until his first appointment with Dr. England in January. Plan is for client to continue IOP to stabilize moods, solidify aftercare, and prevent decompensation. Time Stopped:: 10:00
--- NOTE | 2023-08-10 09:00 | BH.SGPN.GN ---
Behaviors/Verbalizations/Mental Status: [] Eye contact is good. Motor activity is appropriate. Appearance is casual. Speech is Appropriate. Mood is depressed/anxious. Affect is congruent. Thoughts are linear and logical. No evidence of psychosis. Reviewed daily check in sheet and pt reports 1/5 for suicidal thoughts and 0/5 for intent. Client Response/Progress/Benefit: [] Pt was an active participant in group discussion. Attentive. Daily symptom tracker notes 2/5 for anxiety, depression,and irritability. He briefly shared with the group his journey through treatment and life with Bipolar for the past 40 years. He discussed the ups and downs as well as the daily struggles. He shared recent skills and strategies which have been helpful as he is coming down from his recent hypomanic episode. Pt reports being in a positive mood this AM feeling stable, not depressed or manic. Progress noted as pt reports increased mood stability. Benefited from group support, encouragement, and feedback. Will continue in IOP to stabilize mood, prevent decompensation, and improve daily functioning. Narrative Note: []
--- NOTE | 2023-08-10 10:10 | BH.SGPN.GN ---
Behaviors/Verbalizations/Mental Status: []Pt alert and oriented, casual appearance. Eye contact good. Motor activity appropriate. Speech within normal limits. Affect congruent, mood euthymic. Thoughts linear, logical, no signs of hallucinations or delusions. Client Response/Progress/Benefit: [] Client engaged participant AEB completing self-assessment worksheet and providing input throughout discussion. Client completed worksheet identifying current self-care practices and what self-care activities client wants to start using. Client selected emotional and psychological self-care to begin practicing more consistently. Client plans to do this by continue tracking moods and playing pickleball. Appeared to benefit from completing the self-care evaluation and gaining insights into current self-care practices, as well as identifying areas in which client would like to improve upon. Client will continue IOP tx to stabilize moods, increase use of healthy coping skills, and prevent decompensation.
--- NOTE | 2023-08-10 11:10 | BH.SGPN.GN ---
Behaviors/Verbalizations/Mental Status: []Pt alert and oriented, appearance appropriate. Eye contact good. Motor activity appropriate. Speech within normal limits. Affect congruent, mood content. Thoughts linear, logical, no signs of hallucinations or delusions. Client Response/Progress/Benefit: [] Client engaged participant AEB completing self-assessment worksheet and providing input throughout discussion. Client completed worksheet identifying current self-care practices and what self-care activities client wants to start using. Client selected physical and emotional self-care to begin practicing more consistently. Client plans to do this by being more consistent with daily walks, as well as reading. Appeared to benefit from completing the self-care evaluation and gaining insights into current self-care practices, as well as identifying areas in which client would like to improve upon. Client will continue IOP tx to promote skill application, improve mood stability, and prevent decompensation. Narrative Note: []
--- NOTE | 2023-08-11 09:00 | BH.SGPN.GN ---
Behaviors/Verbalizations/Mental Status: [Patient was alert and oriented, appropriately dressed and groomed. Eye contact was good, motor activity normal, speech within normal limits. Affect congruent, mood content. Thoughts linear, logical, no signs of hallucinations or delusions. Reviewed Patients symptom tracker and the patient reports depressed mood, anxiety/panic attacks, agitation/irritability/anger, self-harm urges, and thoughts/risk of suicide within normal limits.] Client Response/Progress/Benefit: [ Patient was engaged and open to the discussion. Patient reported his mood to be ?better?. Patient stated his first win is that he has been feeling better and thinks it could be due to a medication change. Patients second win is that he finally got the appraisal for his mother?s property, but his stressor is that he doesn?t know what it is. He stated that after group he plans on going to check the gupta and hopes it?s not too high. Patient was interactive and respectful with other group members about their mental wins and stressors. Patient benefited from the discussion by listening to feedback and giving input on his peer?s stressors and mental health wins. Patient will continue with IOP treatment to help develop healthy skills, promote mood stability, and improve distress tolerance. ] Narrative Note: []
--- NOTE | 2023-08-11 10:10 | BH.SGPN.GN ---
Behaviors/Verbalizations/Mental Status: []Client alert and oriented, casually dressed and groomed. Eye contact good. Motor activity appropriate. Speech within normal limits. Affect congruent, mood anxious, euthymic. Thoughts linear, logical, no signs of hallucinations or delusions. Client Response/Progress/Benefit: []Client receptive to session AEB providing input throughout, listening attentively to others, and taking notes. Attentive throughout psychoeducation on the cognitive triangle and maintenance cycles. Engaged in group discussion reviewing the impact of daily activities and behaviors in either reinforcing unhealthy maintenance cycles and depression or assisting in reducing symptoms (?down? vs ?up? activities). Client identified common ?down? activities they engage in as: going back to bed, drinking too much pop, and sitting around. Common ?Up? activities client identified included: pickleball, walking, and playing with grandchildren. Appeared to benefit from increased awareness of current behaviors and impact these have on mental health. Recommended to continue IOP tx to stabilize moods, continue to promote thought challenging and prevent decompensation.
--- NOTE | 2023-08-11 11:15 | BH.SGPN.GN ---
Behaviors/Verbalizations/Mental Status: [] Eye contact is good. Motor activity is appropriate. Appearance is casual. Speech is Appropriate. Mood is dysthymic. Affect is congruent. Thoughts are linear and logical. No evidence of psychosis. Client Response/Progress/Benefit: [] Pt responded well to session, attentive and engaged in group discussions and activity. Group discussed values and the benefits that knowing one's values can have on one's mental health. Pt explored own values and identified personal top values. Pt stated a personally important value is physical wellbeing. Client set a goal to improve engagement in this value. Goal identified as getting enough sleep on a more regular basis. Pt appeared to benefit from exploring values and creating a weekly goal. Will continue in IOP to reinforce healthy coping skills, improve mood stability, and prevent decompensation. Narrative Note: []
--- NOTE | 2023-08-17 09:02 | BH.SGPN.GN ---
Behaviors/Verbalizations/Mental Status: [] Eye contact good. Motor activity appropriate. Speech within normal limits. Affect congruent, mood content. Thoughts linear, logical, no signs of hallucinations or delusions. Reviewed client?s symptom tracker, denies SI, plan, or intent as of 08/17/2023. Client Response/Progress/Benefit: [] Client receptive of session, attentive and willing to process with group. Identified mental health ?wins? as challenging himself to use opposite action and participate in conversation when friends came to visit earlier in the week. Noted he had been feeling depressed that day but challenged himself to anyway. Additional win noted as practicing self-care and taking it easy following a surgery he had on Monday. Reports current stressor as maintaining mood stability. Pt did well to identify skills supporting his ability to do so. Client appeared to benefit from group support and encouragement. Recommended continued IOP tx to continue to maintain gains and mood stability, as well as continue to promote consistent skill application, and prevent decompensation. Narrative Note: []
--- NOTE | 2023-08-17 10:15 | BH.SGPN.GN ---
Behaviors/Verbalizations/Mental Status: []Pt alert and oriented, neatly dressed and groomed. Eye contact good. Motor activity appropriate. Speech within normal limits. Affect congruent, mood euthymic. Thoughts linear, logical, no signs of hallucinations or delusions. Client Response/Progress/Benefit: []Pt was a passive participant throughout. Participated through taking notes during interactive discussion on defining conflict (internal/external) and possible benefits to conflict. Attentive during psychoeducation on conflict styles and engaged during small group activity in which peers identified the benefits and consequences to each conflict style. Pt identified their primary conflict style as competing type. Pt declined to share how this impacts his mental health and relationships. Benefited from increased awareness of the impact of conflict styles in mental health. Will continue IOP tx to monitor medications, improve emotional regulation skills, and establish aftercare. Narrative Note: []
--- NOTE | 2023-08-17 13:16 | BH.MDN ---
Multi-Disciplinary Note Note 45-min Individual: Time Started:: 11:20 Date: 08/17/23 Purpose of session/treatment goals addressed:: Purpose of session was to address goals 1 and 2 from [facility]. Eye Contact:: Good Motor Activity:: Appropriate Appearance:: Casual Speech:: Appropriate Mood:: Euthymic and Other (tired) Affect:: Congruent Thoughts:: Linear, Logical and No evidence of hallucinations/delusions noted Staff Interventions:: thought challenging, CBT techniques, discharge planning, strengths perspective and goal setting Client Response:: Client stated feeling tired today due to have surgery two days ago. Client reported he is trying to take it easy, but is worried he overdid it. Client stated mood his feeling more in his baseline. Client reported sleep is starting to improve with getting more days of at least 6 hours. Client reported his family did get the appraisal back from his parents house and is working on accepting that it will cost too much to buy the house. Client stated he is still sad that he won't be able to fix the house up to use it as an [employer]nb for families, but recognizes it would cost him and his siblings too much money to buy and fix up. Client reported he does feel like he is handling this loss of project better than he thought. Client agreed with therapist that he can find other small projects to work on that will still make him happy. Discussed discharge from [facility]. Client stated he does like would be ready for discharge next week. Client wants to see [facility] psychiatrist one more time to ensure he has refills and make sure current medication regimen is good to continue. Risks/Concerns:: Denies active suicidal ideation, plan, or intention. Future oriented. Progress Toward Goals/Plan:: Progress noted with client reporting feeling more in his baseline for mood. Client's thoughts were more organized and on topic throughout session. Client's speech has returned to within normal limits. Client reported feeling more prepared and ready for discharge from [facility]. Stated sleep is improving. Plan is for client to discharge from [facility] next week. Client encouraged to schedule appointment with his outpatient counseling Keyona Mckeon and outpatient psychiatrist. Time Stopped:: 12:00
== END 2023-08-17 23:59 ==
LOC: BHIOP 07:49
PROVIDERS: PCP Family Medicine; Referring Provider Psychiatry & Neurology Psychiatry; Visit Provider Psychiatry & Neurology Psychiatry
DX: F31.0 Bipolar disorder, current episode hypomanic (principal); F41.0 Panic disorder [episodic paroxysmal anxiety]; F41.1 Generalized anxiety disorder; G47.33 Obstructive sleep apnea (adult) (pediatric)
CPT/HCPCS: S9480; 90834; 90837; 90853

== ENCOUNTER 2023-08-18 06:56 | Outpatient (RCR) | payer MEDICARE, SELFPAY ==
[2023-08-18 00:29] VITALS: BP 128/84; PULSE 55
--- NOTE | 2023-08-23 10:15 | BH.SGPN.GN ---
Behaviors/Verbalizations/Mental Status: [] Eye contact is good. Motor activity is appropriate. Appearance is casual. Speech is Appropriate. Mood is euthymic. Affect is full. Thoughts are linear and logical. No evidence of psychosis. Client Response/Progress/Benefit: [] Pt was an active participant during group discussions and group activities. This portion of group was very psychoeducation heavy and pt was attentive during psychoeducation. Engaged during activity in which they identified which type of foods (i.e. carbs, sugar, salt, fast food, caffeine, etc) they seek out when sad, tired, angry, rushed, anxious, etc. Pt was able to identify the impact that certain foods have on their mental health through group example which was beneficial. Benefited from increased awareness of the connection between nutrition and mental health. Today is pt's last day in [facility] and is scheduled to discharge successfully. Narrative Note: []
--- NOTE | 2023-08-23 11:53 | PCM.BH.PN ---
Progress Note Progress Note: History of Present Illness/Interim History: The patient is a 67-year-old male with a history of bipolar Polar 1 disorder most recent episode hypomanic who is seen in follow-up at the [facility] health [facility]. I last saw the patient 2 weeks ago and at that time no other medication changes were made. According to the staff the patient has been consistent in his attendance and engaged in the IOP. He has been very stable for the past 2 weeks. He feels he is doing pretty good and feels he is no longer hypomanic but also denies any depression. He is hopeful for the future and feels he is better able to cope as he ends his time in the IOP. His sleep is 7 hours a night and on occasion he naps during the day. He and his have come up with a solution along with the rest of their family on what to do with his parents farm and he is at peace with this and is planning for the future. He is tolerating the medications well and denies any side effects on lithium. He feels his mood is about euthymic now. He denies passive thoughts of , suicidal ideation, homicidal ideation, plan for suicide, hallucinations or delusions. Current Psychiatric Medications: [] Rockleigh carbonate 900 mg p.o. nightly and 300 mg p.o. every morning. Zyprexa 7.5 mg p.o. nightly (increased 1 month ago). Mental Status Examination: [] The patient is a 67-year-old male who appears younger than stated age and is casually dressed and groomed with good hygiene. He has no psychomotor agitation or retardation. He is cooperative and pleasant during the interview. Eye contact is good and speech is mildly rapid but fluent with normal rate and rhythm and no pressure. Mood is euthymic. Affect is full and normal. Thought process is goal-directed and organized. Patient is minimally overinclusive and does not need to be redirected. Thought content: The patient is hopeful for the future. There is no evidence of passive thoughts of , suicidal ideation, plan for suicide, homicidal ideation, hallucinations, delusions or symptoms of patricio. Reality testing is intact. Intelligence is above average. Judgment is intact. Insight is good. Impulsivity is moderate. Diagnoses: [] 1. Bipolar 1 disorder, most recent episode hypomanic (F 31.0; resolving) 2. Panic disorder 3. Generalized anxiety disorder 4. Obstructive sleep apnea using CPAP 5. Primary support and work issues Plan: [] The patient will be discharged from the [facility] as he has benefited from the program and his symptoms have resolved. He felt safe during the interview and if it anytime he does not feel safe he will let us know or go to the emergency room. The risk, options, possible complications and side effects of the Zyprexa and the lithium were again discussed with the patient and he understands and accepts these. I would recommend continuing the patient's Zyprexa for 6 months and if he does not gain weight he could consider staying on it. I recommend to the patient that he get his lithium blood work in about 3 months and to get blood work if he develops any side effects on lithium. He will continue to follow-up with his outpatient providers.
--- NOTE | 2023-08-23 14:05 | BH.MDN_ITS ---
Multi-Disciplinary Note Note 45-min Individual: Time Started:: 11:15 Date: 08/23/23 Purpose of session/treatment goals addressed:: Purpose of session was to identify treatment progress, solidify aftercare plans, and complete maintenance plan. Eye Contact:: Good Motor Activity:: Appropriate Appearance:: Casual Speech:: Appropriate Mood:: Euthymic Affect:: Full Thoughts:: Linear, Logical and No evidence of hallucinations/delusions noted Staff Interventions:: discharge planning, strengths perspective and other (maintenance plan) Client Response:: Client reported feeling ready for discharge today. Client stated he feels like his mood has been more baseline in which he has more energy, able to enjoy things, getting better sleep, and not feeling depressed. Client reported he hasn't felt in his baseline for a long time and is relieved to not feel constantly depressed. Client stated he doesn't feel like he is manic anymore. Client reported he has been doing better with accepting and moving on that he will not be able to purchase his parents house to work on due to cost. Client stated although it has been hard to let go of this dream he knows he has to accept what is outside his control. Client worked with therapist to complete maintenance plan in which he identified triggers, warning signs, self-care activities, and coping skills. Client stated for follow up he has Keyona Mckeon for individual counseling and Dr. England for psychiatry. Client reported at this time he did not want to start the [facility] Aftercare program. Risks/Concerns:: Client denies suicidal ideation, plan, or intention to d ate. Progress Toward Goals/Plan:: Progress noted with client reporting improved daily functioning, mood stability, decreased depression, improved sleep, decre ased agitation, and improved coping. Client will discharge from [facility] today. Client is established with Keyona Mckeon for individual counseling and has an appointment with Dr. England for medication management in January. Client can follow up with his other psychiatrist based in [place] until his appointment with Dr. England. Time Stopped:: 12:00
--- NOTE | 2023-08-23 14:19 | BH.DS_ITS ---
Discharge Summary Demographics Date of Admission:: 06/20/23 Discharge Date: 08/23/23 Presenting Problems at Admission:: The patient is a 67-year-old male with a long history of bipolar 1 disorder who was referred to the [facility] behavioral health [facility] by his outpatient provider for worsening depression. The patient states that he has been depressed for several years now and was seen with his at the intake and says that patient te nds to minimize his symptoms but she feels he has no [place]. The patient states I am tired of suffering. The patient sleeps all day sometimes when he is depressed. He endorses sadness, hopelessness, anhedonia but states that he does enjoy being outside. He has panic attacks a few times a week which she has learned to moderate somewhat with breathing exercises. Denies patricio. Denies suicidal ideation, plan, or intention. Discharge Diagnoses:: 1. Bipolar 1 disorder, most recent episode depression, severe without psychosis (F31.4) 2. Panic disorder 3. Generalized anxiety disorder Reason for Discharge:: Pt reports improved mood stability, decreased depression, improved daily functioning, and states I think I finally know what my baseline mood is. Treatment Progress During Treatment & Response: Progress noted with client reporting feeling like his mood is finally in baseline for him. Pt stated he was so used to feeling depressed, he is happy to finally feel in the middle. Pt did have manic episode while in IOP from reaction to Latuda. Pt has stabilized the last couple of weeks on his new medication regimen, that pt stated is helping prevent him from being manic and from being severely depressed. Pt recently has come to terms with not being able to purchase his parents home, which denotes significant treatment progress for him because it has been a source of obsession for him for several weeks. Pt responded well to treatment AEB consistent attendance, medication adherence, and applying skills learned outside treatment environment. Issues Still to be Addressed:: Client to continue reinforcement of healthy coping skills, tracking mood, and tracking his sleep. Discharge Recommendations/Instructions:: Client recommended to continue outpatient counseling with Keyona Mckeon. Client has an appointment with Dr. England for medication management in January. In the meantime he will continue seeing his online psychiatrist that is located in [place]. Client will start [facility] aftercare program on 09/07/23. Discharge Handout
== END 2023-08-23 12:19 | disposition home or self-care (01) ==
LOC: BHIOP 06:56
PROVIDERS: PCP Family Medicine; Referring Provider Psychiatry & Neurology Psychiatry; Visit Provider Psychiatry & Neurology Psychiatry
DX: F31.0 Bipolar disorder, current episode hypomanic (principal); F41.0 Panic disorder [episodic paroxysmal anxiety]; F41.1 Generalized anxiety disorder; G47.33 Obstructive sleep apnea (adult) (pediatric); Z79.899 Other long term (current) drug therapy
CPT/HCPCS: S9480; 90834; 90853

== ENCOUNTER 2023-09-07 09:50 | Outpatient (RCR) | payer MEDICARE, SELFPAY ==
--- NOTE | 2023-09-07 14:00 | BH.SGPN.GN ---
Behaviors/Verbalizations/Mental Status: []Pt alert and oriented, neatly dressed and groomed. Eye contact good. Motor activity appropriate. Speech within normal limits. Affect congruent, mood calm. Thoughts linear, logical, no signs of hallucinations or delusions. Client Response/Progress/Benefit: [] Pt receptive of session, engaged throughout. Pt did not have an appointment with a therapist this week. Pt has been consistent with taking meds and using coping skills. These skills included: acceptance and getting outside. Receptive of discussion on sitting with the uncomfortable and emotional urges. Pt contributed to the discussion of distress tolerance and how building distress tolerance can help improve mood stability and resilience. Pt looked at a recent situation that was distressing and wrote out low distress tolerance and high distress tolerance responses. Pt wants to work on driving below the speed limit to practice being uncomfortable on purpose. Pt seemed to benefit from support from peers and increasing understanding of distress tolerance. Will continue IOP aftercare tx to promote gains made in IOP and promote mood stability. Narrative Note: []
--- NOTE | 2023-09-07 14:24 | BH.COMM ---
Communication Note Communication with Client Communication Note: Patient completed IOP and presents today to start relapse prevention group which meets once weekly (1.5 hours) for 8 weeks. Case discussed with Dr. Horta with plan to admit with dx of F314
--- NOTE | 2023-09-07 16:00 | BH.MTP_ITS ---
Master Treatment Plan Patient Information Program Physician:: Dr. Horta Primary Therapist:: Shaila Harry [facility] Psychiatric Diagnoses Psychiatric Diagnoses:: 1. Bipolar 1 disorder, most recent episode depression, severe without psychosis (F31.4) 2. Panic disorder 3. Generalized anxiety disorder Diagnosis Code(s):: F31.4 Estimated LOS Estimated LOS (in weeks):: 8 Problem/Goal #1 Problem/Goal #1 Stated Goal:: client will maintain or see a reduction in symptoms AEB client score on the DSM 5 cross-cutting measure and improve client's daily functioning. Objectives Objective #1: Stated Objective: Client will continue to consistently apply healthy coping skills to maintain progress made in IOP tx. Interventions: Through group therapy, client will review warning signs and triggers as well as healthy coping skills learned in IOP tx to successfully maintain gains while transitioning into outpatient therapy. Discharge Criteria: Client will have accomplished this goal when client's score on the DSM-5 cross-cutting measure has maintained or reduced over a 8 week period. Target Date: 11/02/23 Review Date: 10/05/23 Objective #2: Stated Objective: Client will learn and utilize 2-3 maintenance strategies to prevent decompensation from original IOP DSM-5 scores. Interventions: Through group therapy, client will be provided with education on healthy maintenance behaviors, relapse prevention techniques, and healthy coping strategies. Discharge Criteria: Client will have accomplished this goal when can report using at least 2 maintenance skills to prevent decompensation compared to original IOP DSM-5 scores. Target Date: 11/02/23 Review Date: 10/05/23
== END 2023-09-17 23:59 ==
LOC: BHOG 09:50
PROVIDERS: PCP Family Medicine; Referring Provider Psychiatry & Neurology Psychiatry; Visit Provider Psychiatry & Neurology Psychiatry
DX: F31.4 Bipolar disorder, current episode depressed, severe, without psychotic features (principal); F41.1 Generalized anxiety disorder; F41.0 Panic disorder [episodic paroxysmal anxiety]
CPT/HCPCS: 90853

== ENCOUNTER 2023-09-18 07:12 | Outpatient (RCR) | payer MEDICARE, SELFPAY ==
--- NOTE | 2023-09-21 14:00 | BH.SGPN.GN ---
Behaviors/Verbalizations/Mental Status: []Pt alert and oriented, casually dressed and groomed. Eye contact good. Motor activity appropriate. Speech within normal limits. Affect congruent, mood content, positive. Thoughts linear, logical, no signs of hallucinations or delusions. Client Response/Progress/Benefit: []Pt responded well to session AEB sharing and listening attentively to others. Pt has been consistent with outpatient mental health appointments and medication compliance. Pt reports using positive self-talk, opposite action, and advocating for his needs to help with managing mental health symptoms. Pt participated in group discussion defining affirmations and why they are important. Pt provided insight throughout clinician?s presentation of tips for writing personal affirmations and wrote their own affirmations, including ?I am currently the best version of myself, I am valuable to myself and others?, I can survuve the negative things thrown at me. Pt appeared to benefit from increased knowledge of affirmation writing skills and creating their own affirmation statements to remind themselves of outside tx environment. Will continue aftercare tx to promote consistent mental health maintenance and prevent decompensation. Narrative Note: []
--- NOTE | 2023-09-28 14:48 | BH.TPR ---
Treatment Plan Review Demographics Date of Admission:: 09/07/23 Date of Treatment Plan Review:: 09/28/23 Admitting Diagnoses:: Bipolar 1 disorder, most recent episode depression, severe without psychosis (F31.4); Panic disorder ; Generalized anxiety disorder Current Diagnoses:: Bipolar 1 disorder, most recent episode depression, severe without psychosis (F31.4); Panic disorder ; Generalized anxiety disorder Patient Status Patient's Response to Treatment:: Pt continues to respond well to treatment AEB pt's consistent attendance, ongoing attentiveness and engagement in group discussions, and continued reporting use of skills outside treatment environment. Pt's symptoms are still 29% lower than they were at IOP admission. Status of Current Problems and Symptoms: Pt is reporting continued improvement in his mental health with ability to manage emotions, challenging negative thoughts, and acceptance. Pt reports mild anxious and depressive symptoms currently. Pt's biggest stressors are connected to interpersonal relationships. Progress Problem #1: Problem Name:: Pt will maintain or see a reduction in sx Status of Goals:: Obj 1 - complete with ongoing work encouraged. Pt's DSM 5 scores for anger are 50% lower than they were at IOP admission and anxiety is still 20% lower compared to IOP admission. Pt's depression scores have not decreased further, but he has prevented decompensation. Obj 2 - complete with ongoing work encouraged. Pt had been reporting using opposite action, focusing on getting at least one task done even on rough days, acceptance, and staying active. Team Recommendations:: Recommended pt continue IOP aftercare group in addition to attending regular outpatient counseling in order to maintain gains.
== END 2023-10-17 23:59 ==
LOC: BHOG 07:12
PROVIDERS: PCP Family Medicine; Referring Provider Psychiatry & Neurology Psychiatry; Visit Provider Psychiatry & Neurology Psychiatry
DX: F31.4 Bipolar disorder, current episode depressed, severe, without psychotic features (principal); F41.0 Panic disorder [episodic paroxysmal anxiety]; F41.1 Generalized anxiety disorder; Z79.899 Other long term (current) drug therapy
CPT/HCPCS: 90853

== ENCOUNTER 2023-10-18 06:35 | Outpatient (RCR) | payer MEDICARE, SELFPAY ==
--- NOTE | 2023-10-26 14:00 | BH.SGPN.GN ---
Behaviors/Verbalizations/Mental Status: []Pt alert and oriented, casually dressed and groomed. Eye contact good. Motor activity appropriate. Speech within normal limits. Affect congruent, mood euthymic. Thoughts linear, logical, no signs of hallucinations or delusions. Client Response/Progress/Benefit: []Client stated he met with his counselor a few weeks ago. Client reported he is taking medications consistently. Client stated she has been using thought challenging, taking breaks, and reaching out to supports as skills to manage stressors throughout the week. Client attentive to psychoeducation about gratitude and provided contributions throughout. Along with group was able to identify benefit of gratitude, as well as various ways to practice both internalized and externalized gratitude. Client created gratitude plan for the week which included gratitude for: something that made him smile, a song he loves, family and friends, as well as a smell he enjoys. Pt to continue IOP to maintain gains, challenge distortions, and prevent decompensation. Narrative Note: []
--- NOTE | 2023-11-02 14:00 | BH.SGPN.GN ---
Behaviors/Verbalizations/Mental Status: []Pt alert and oriented, casually dressed. Eye contact good. Motor activity appropriate. Speech within normal limits. Affect congruent, mood calm. Thoughts linear, logical, no signs of hallucinations or delusions. Client Response/Progress/Benefit: []Pt receptive of session, engaged and providing supportive feedback throughout group. Pt reports being consistent with counseling and medication. Pt used many coping skills this week including thought challenging, patience, and sitting with the uncomfortable. Pt engaged in the discussion about self-love and participated in the experiential activity that highlighted the acceptance component of self-love. Reports wanting to work on self-love by continuing to get outside and move his body. Seemed to benefit from reviewing treatment progress and strategies for managing current stressors, as well as learning about how to increase self-love. Pt?s last day of IOP aftercare. Pt will continue with outpatient counseling and psychiatry. Narrative Note: []
--- NOTE | 2023-11-02 16:32 | BH.DS_ITS ---
Discharge Summary Demographics Date of Admission:: 09/07/23 Discharge Date: 11/02/23 Presenting Problems at Admission:: Client discharged from [facility] tx and transitioned to [facility] aftercare to maintain gains client made in IOP and to reinforce healthy coping skills. At admission to [facility] aftercare, pt was struggling with significant depressed symptoms with hopelessness, anhedonia, and apathy. Pt was diagnosed with Bipolar 1 disorder over 30 years ago. Ongoing difficulties in maintaining consistent with emotion regulation skills, challenging distortions, and marital stress. Discharge Diagnoses:: 1. Bipolar 1 disorder, most recent episode depression, severe without psychosis (F31.4) 2. Panic disorder 3. Generalized anxiety disorder Reason for Discharge:: Client has continued to show maintenance of progress since starting aftercare and is ready to step down to once a week counseling with his individual counselor. Treatment Progress During Treatment & Response: Pt did well with attendance and remained active in engagement. Pt contributed well during group discussions, often providing insight and supportive feedback. Pt was able to see a reduction of overall sx from IOP admission to aftercare discharge of 16%, with 50% reduction in irritability, 33% reduction in depression, and 20% reduction in sx of anxiety. Pt reports improved ability to recognize mood shifts, focusing on maintaining good sleep hygiene, and improvement with communciation. Issues Still to be Addressed:: Client could benefit from continuing to use daily mood log, maintaining good sleep hygiene, working on conflict resolution skills, and improving emotion regulation. Discharge Recommendations/Instructions:: Will continue with regularly scheduled appointments with Keyona Barriga for counseling and Dr. England for medication management as well. Discharge Handout
== END 2023-11-03 07:23 | disposition home or self-care (01) ==
LOC: BHOG 06:35
PROVIDERS: PCP Family Medicine; Referring Provider Psychiatry & Neurology Psychiatry; Visit Provider Psychiatry & Neurology Psychiatry
DX: F31.4 Bipolar disorder, current episode depressed, severe, without psychotic features (principal); F41.0 Panic disorder [episodic paroxysmal anxiety]; F41.1 Generalized anxiety disorder; Z79.899 Other long term (current) drug therapy
CPT/HCPCS: 90853

== ENCOUNTER → 2024-12-23 | Outpatient (CLI) | payer MEDICARE, SELFPAY ==
[2024-12-23 16:12] LABS: Lithium 0.77 mmol/L (0.60-1.20)
[2024-12-26 13:08] LABS: Vitamin D 1,25-Dihydroxy 50.9 pg/mL (24.8-81.5)
[2024-12-28 18:08] LABS: Folate, Hemolysate Test > 620.0 ng/mL (Not Estab.); Folate, RBC (Hct) Test 46.1 % (37.5-51.0); Folates, RBC Test > 1345 ng/mL (>498)
== END | disposition home or self-care (01) ==
LOC: MTLAB 10:52
PROVIDERS: Psychiatry & Neurology Neurology; PCP Family Medicine; Referring Provider Student in an Organized Health Care Education/Training Program; Visit Provider Student in an Organized Health Care Education/Training Program
DX: G21.9 Secondary parkinsonism, unspecified (principal); F31.4 Bipolar disorder, current episode depressed, severe, without psychotic features; G31.84 Mild cognitive impairment of uncertain or unknown etiology; R73.9 Hyperglycemia, unspecified
CPT/HCPCS: 36415; 80178; 82652; 82747; 83036; 84425; 84439; 84443; 85014

== ENCOUNTER → 2025-01-17 | Outpatient (CLI) | payer MEDICARE, SELFPAY ==
--- NOTE | 2025-01-17 15:03 | MRI_ITS ---
PROCEDURE: BRAIN W/WO CONTRAST 01/17/2025 REASON FOR EXAM: SECONDARY PARKINSONISM; MILD COGNITIVE IMPAIRMENT TECHNIQUE: BRAIN W/WO CONTRAST Multiplanar and multisequence images were obtained. CONTRAST: Clariscan VOLUME: 14 mL COMPARISON: MRI brain without contrast, 02/08/2018 FINDINGS: There is a normal sulcal pattern and gyral configuration. There is no evidence of acute intracranial hemorrhage or infarction. The bocanegra-white differentiation is well preserved. There is no evidence of restricted diffusion. The ventricles and basilar cisterns are normal. There are normal flow voids demonstrated in the recognized intracranial vessels. There is no abnormal intracranial contrast enhancement. There is a left-sided retro cerebellar arachnoid cyst. The cerebellum and brainstem are otherwise unremarkable. The cerebellar pontine angles are normal. The craniovertebral junction is normal. The sella and suprasellar regions are normal. The orbits and retro-orbital regions are unremarkable. The nasal septum is deviated to the right. There is mucosal thickening of the frontal sinuses and multiple ethmoidal air cells bilaterally. The mastoid air cells are clear. There is normal bone marrow signal in the skull base and calvarium. MRI/Brain W/WO Contrast IMPRESSION: No evidence of intracranial pathology. Sinusitis. Reading Location: [id number]
== END | disposition home or self-care (01) ==
PROVIDERS: PCP Family Medicine; Referring Provider Psychiatry & Neurology Neurology; Visit Provider Psychiatry & Neurology Neurology
DX: G31.84 Mild cognitive impairment of uncertain or unknown etiology (principal); G21.9 Secondary parkinsonism, unspecified
CPT/HCPCS: 70553; A9575

== ENCOUNTER → 2025-02-06 | Outpatient (CLI) | payer MEDICARE, SELFPAY ==
[2025-02-06 12:20] LABS: Ammonia 33.2 umol/L (16-60)
== END | disposition home or self-care (01) ==
LOC: LAB 10:54
PROVIDERS: PCP Family Medicine; Referring Provider Psychiatry & Neurology Neurology; Visit Provider Psychiatry & Neurology Neurology
DX: G25.1 Drug-induced tremor (principal); G21.9 Secondary parkinsonism, unspecified; G31.84 Mild cognitive impairment of uncertain or unknown etiology
CPT/HCPCS: 36415; 82140; 84425

== ENCOUNTER 2025-03-19 08:47 | Emergency (ER) | payer MEDICARE, SELFPAY ==
[2025-03-19 08:50] VITALS: BP 110/75; PULSE 50; RESP 16; TEMP 36.3; O2SAT 100
--- NOTE | 2025-03-19 08:54 | ED.RN ---
DR. ANTHONY IN TRIAGE ASSESSING PATIENT
--- NOTE | 2025-03-19 08:57 | ED.VIS.STROK ---
HPI History of Present Illness Chief Complaint: Dizziness Informant: patient Onset/Context/Timing Onset: Today Context: Sudden Onset Timing: Continuous Quality and Location: Positive for - (Dizziness, spinning sensation) Onset: Woke up with symptoms Worsened by: Walking, movement Relieved by: Nothing Associated Symptoms Associated Symptoms: Positive for Headache and Nausea; Negative for Vomiting or Chest Pain Narrative Narrative: Patient presents with dizziness that began this morning. Patient states he woke up with it. Patient states he felt fine when he went to bed last night at 1030. Patient states that he feels everything is spinning today. Patient denies any hearing changes or tinnitus. Patient denies any paresthesias or weakness. Patient denies any difficulty speaking or difficulty swallowing. Patient denies any chest pain or shortness of breath. Patient admits to some nausea but denies any vomiting. Patient admits to a mild headache. states that she checked his blood pressure at home and it was 134/84 and his heart rate was 50. [facility] Medical History Obstructive sleep apnea Generalized anxiety disorder Panic disorder Bipolar 1 disorder, depressed, severe Depression Prostate disease Migraine headache Non-smoker CPAP (continuous positive airway pressure) dependence Sleep apnea Home Medications ?Medication ?Instructions ?Recorded ?Last Taken ?Type cholecalciferol (vitamin D3) 25 25 mcg PO QDAY 02/28/24 Unknown History mcg (1,000 unit) capsule benztropine 0.5 mg tablet 0.5 mg PO BID #60 tabs 12/23/24 Unknown Rx lithium carbonate 300 mg capsule See Rx Instructions .Route 02/06/25 Unknown Rx .COMPLEX #90 caps multivitamin (Daily Multi-Vitamin 1 tab PO DAILY 02/06/25 Unknown History tablet) olanzapine 5 mg tablet 5 mg PO QHS #30 tabs 02/06/25 Unknown Rx amoxicillin 875 mg-potassium 1 tab PO Q12.TCU 03/19/25 Unknown History clavulanate 125 mg tablet Allergy/AdvReac Type Severity Reaction Status Date / Time latex Allergy Severe Rash Verified 03/19/25 08:50 red dye Allergy Mild Other Verified 03/19/25 08:50 Family History Other Depression Mental disorder Myocardial infarction Psychiatric care Skin cancer Surgical History History of hernia repair History of foot surgery Social History Smoking Status: Never smoker alcohol intake: current details: beer/weekly substance use type: does not use what type of physical activity do you participate in: walking ROS ROS ED Constitutional Constitutional ED: Denies chills or fever(s) Eyes Eyes: Denies blurry vision or change in vision ENT ENT ED: Denies rhinorrhea or sore throat Cardiovascular Cardiovascular: Denies chest pain or palpitations Respiratory/Chest Respiratory/Chest: Denies cough or dyspnea Gastrointestinal Gastrointestinal: Reports nausea; Denies vomiting Genitourinary Genitourinary ED: Denies dysuria or hematuria Musculoskeletal Musculoskeletal: Reports neck pain; Denies back pain Integumentary Denies abscess or rash Neurologic Neurologic: Reports headache(s); Denies weakness Allergic/Immunologic Allergic/Immunologic ED: Denies mouth swelling or urticaria EXAM Physical Exam Const Vital Signs: 03/19/25 08:50 03/19/25 09:09 03/19/25 10:23 Temperature 97.4 F L Temperature Source Temporal Pulse Rate 50 L 50 L Pulse Rate [Lying] 51 L Pulse Rate [Sitting (for 1 minute prior to obtaining)] 52 L Pulse Rate [Standing (for 1 minute prior to obtaining)] 51 L Respiratory Rate 16 16 Blood Pressure 110/75 121/75 H Blood Pressure [Lying] 109/66 Blood Pressure [Sitting (for 1 minute prior to obtaining)] 117/81 H Blood Pressure [Standing (for 1 minute prior to obtaining)] 115/83 H Blood Pressure Mean 86 90 Blood Pressure Mean [Lying] 80 Blood Pressure Mean [Sitting (for 1 minute prior to obtaining)] 93 Blood Pressure Mean [Standing (for 1 minute prior to obtaining)] 93 Pulse Ox 100 98 Oxygen Delivery Method Room Air Positive well nourished and well developed General Appearance ED: well developed and NAD HEENT Reports moist mucous membranes atraumatic Eyes PERRL and EOMs intact bilaterally Eyes Narrative: There is no nystagmus noted. Neck supple and no JVD Resp normal respiratory effort and clear to auscultation bilaterally Cardio Rate: regular rate Rhythm: regular rhythm GI soft to palpation, non-tender and non-distended Extremity normal to inspection General Extremety ED: Negative for deformity or edema General Extremity: Negative for deformity or edema Neuro oriented x3, CN's II-XII intact bilaterally and no sensory deficits noted [place] Coma Scale: document GCS findings Spontaneous Obeys Commands Oriented 15 Sensorium / Orientation: alert Speech: speech normal Motor Exam: strength 5/5 throughout Psych mental status grossly normal MDM MDM MDM Narrative Medical decision making narrative: Differential diagnosis includes stroke, peripheral vertigo, labyrinthitis, dehydration, electrolyte abnormality, cardiac dysrhythmia, cardiac ischemia, pneumonia, bronchitis, and anxiety. CT scan of the brain will be obtained to assess for stroke and intracranial bleeding. EKG will be obtained to assess for cardiac dysrhythmia and cardiac ischemia. Chest x-ray will be obtained to assess for pneumonia or bronchitis. CBC will be obtained to assess for leukocytosis and anemia. Basic metabolic profile will be obtained to assess for electrolyte abnormality renal function. High-sensitivity troponin will be obtained to assess for cardiac ischemia. 2-hour repeat high-sensitivity troponin will be obtained to assess for ongoing cardiac ischemia. PT with INR and PTT will be obtained to assess for coagulopathy. Lab Data Attestation: I reviewed the patient's lab results. Lab results narrative: CBC was reviewed and was within normal limits. Basic metabolic profile was reviewed and was essentially within normal limits. Glucose was slightly elevated at 144. PT with INR and PTT were reviewed and were within normal limits. High-sensitivity troponin was reviewed and was less than 6. Serum lithium level was reviewed and was normal at 0.92. Urinalysis was reviewed. There is no evidence of urinary tract infection or hematuria. Labs: Laboratory Results - last 24 hr 03/19/25 03/19/25 03/19/25 08:51 08:55 09:05 WBC 6.3 RBC 4.50 L Hgb 13.8 Hct 41.0 MCV 91.1 MCH 30.7 MCHC 33.7 RDW Std Deviation 40.8 RDW Coeff of [place] 12.2 Plt Count 223 MPV 10.2 Immature Gran % (Auto) 0.300 Neut % (Auto) 68.9 Lymph % (Auto) 20.3 [place] % (Auto) 5.6 Eos % (Auto) 4.1 Baso % (Auto) 0.8 Absolute Neuts (auto) 4.3 Absolute Lymphs (auto) 1.27 Nucleated RBC % 0 PT 13.7 INR 1.0 APTT 25.5 Sodium 135 Potassium 4.2 Chloride 105 Carbon Dioxide 22.2 Anion Gap 8 BUN 21 H Creatinine 0.80 Estim Creat Clear Calc 79.75 Est GFR (MDRD) Non-Af 97 BUN/Creatinine Ratio 26.2 H Glucose 144 H Calcium 9.3 Troponin T High Sens < 6 Urine Color Urine Clarity Urine pH Ur Specific [place] Urine Protein Urine Glucose (UA) Urine Ketones Urine Occult Blood Urine Nitrite Urine Bilirubin Urine Urobilinogen Ur Leukocyte Esterase Urine RBC Urine WBC Ur Squamous Epith Cells Urine Bacteria Urine Mucus [place] 0.92 POC Glucose 135 H 03/19/25 09:50 WBC RBC Hgb Hct MCV MCH MCHC RDW Std Deviation RDW Coeff of [place] Plt Count MPV Immature Gran % (Auto) Neut % (Auto) Lymph % (Auto) [place] % (Auto) Eos % (Auto) Baso % (Auto) Absolute Neuts (auto) Absolute Lymphs (auto) Nucleated RBC % PT INR APTT Sodium Potassium Chloride Carbon Dioxide Anion Gap BUN Creatinine Estim Creat Clear Calc Est GFR (MDRD) Non-Af BUN/Creatinine Ratio Glucose Calcium Troponin T High Sens Urine Color Yellow Urine Clarity Clear Urine pH 6.5 Ur Specific [place] 1.015 Urine Protein 30 H Urine Glucose (UA) Normal Urine Ketones Negative Urine Occult Blood Negative Urine Nitrite Negative Urine Bilirubin Negative Urine Urobilinogen Normal Ur Leukocyte Esterase Negative Urine RBC 0 SEEN Urine WBC 0 SEEN Ur Squamous Epith Cells 0 SEEN Urine Bacteria 0 SEEN Urine Mucus 0 SEEN [place] POC Glucose Radiography Diagnostic Testing: Clinical Impression(s) from Imaging Studies Chest X-Ray 03/19/25 09:03 IMPRESSION: No radiographic evidence of acute cardiopulmonary disease. Reading Location: [facility] 03/19/25 09:35 IMPRESSION: No evidence of acute disease. Stable examination. Reading Location: [address] [place] and lateral chest x-ray was obtained. There are 2 views. On my independent interpretation, lung theodore are clear. There is normal cardiac silhouette. Bony thorax is normal. There is no acute process noted. Radiologist also interpreted the x-ray and agrees. CT scan of the brain was obtained. There is no acute intracranial abnormality. This was interpreted by the radiologist and was also independently reviewed by myself. EKG Initial EKG: Attestation: I personally reviewed and interpreted this EKG as follows: Interpretation: Sinus Bradycardia (With first-degree AV block with a rate of 51), AV Block (First-degree) and Non-Specific ST Changes Comments: EKG was obtained. On my independent interpretation, it showed a sinus bradycardia with first-degree AV block with a rate of 51. MI interval was slightly prolonged at 212 ms. QRS interval was normal at 80 ms QTc interval was normal at 379 ms. [place] was normal. There are nonspecific ST-T wave changes. Prior EKG tracings: available for review Prior: Unchanged (04/20/2023) Treatment and Re-Evaluation Narrative: Patient was given a dose of Valium here. Patient was feeling better on reevaluation. Patient and spouse were advised of his findings. Patient was able to ambulate to the bathroom and back without difficulty. Patient was instructed to follow-up with his primary care physician in 5 to 7 days. Patient was instructed to return if worse in any way. Patient understood and was agreeable with plan. All questions were answered. Discharge Plan Triage Chief Complaint: Dizziness ED Provider: Enmanuel Mccall Dx/Rx/DC Orders Clinical Impression: Dizziness, Generalized anxiety disorder Instructions: ED Dizziness, Uncertain Cause Prescriptions: No Action cholecalciferol (vitamin D3) 25 mcg (1,000 unit) capsule 25 mcg PO QDAY benztropine 0.5 mg tablet 0.5 mg PO BID Qty: 60 3RF multivitamin [Daily Multi-Vitamin] Tablet 1 tab PO DAILY lithium carbonate 300 mg capsule See Rx Instructions .ROUTE .COMPLEX Qty: 90 3RF Rx Instructions: 300 mg PO QAM and 600 mg PO QHS olanzapine 5 mg tablet 5 mg PO QHS Qty: 30 3RF amoxicillin-pot clavulanate 875-125 mg tablet 1 tab PO Q12.TCU Primary Care Provider: Obdulio Angel Referrals: Obdulio Angel MD [Primary Care Provider, Family Practice] - 5-7 Days Print Language: Argentine Disposition Disposition: Home, Self Care NIHSS NIHSS 1a. Level of Consciousness: 0 - Alert; keenly responsive 1b. LOC Questions: 0 - Answers BOTH questions correctly 1c. LOC Commands: 0 - Performs BOTH tasks correctly 2. Best Gaze: 0 - Normal 3. Visual: 0 - No visual loss 4. Facial Palsy: 0 - Normal symmetrical movements 5a. Left Arm: 0 - No drift; arm holds 90 (or 45) degrees for full 10 seconds 5b. Right Arm: 0 - No drift; arm holds 90 (or 45) degrees for full 10 seconds 6a. Left Le - No drift; leg holds 30-degree position for full 5 seconds 6b. Right Le - No drift; leg holds 30-degree position for full 5 seconds 8. Sensory: 0 - Normal; no sensory loss 9. Best Language: 0 - No aphasia; normal 10. Dysarthria: 0 - Normal 11. Extinction and Inattention: 0 - No abnormality Total: 0 Stroke Questions Stroke Team Activated: No Reviewed Inclusion/Exclusion criteria: Yes
[2025-03-19 08:58] VITALS: BMI 24.9
--- NOTE | 2025-03-19 09:03 | RAD_ITS ---
PROCEDURE: CHEST PA AND LATERAL 03/19/2025 REASON FOR EXAM: DIZZINESS TECHNIQUE: Procedure Code: RADCXR Modality: DX Procedure: CHEST PA AND LATERAL COMPARISON: None FINDINGS: Hardware: None Heart: The heart size is normal. Mediastinum: The mediastinal contour is unremarkable. Lungs: The lungs are clear. Bones: The bones are unremarkable. RAD/Chest PA and Lateral IMPRESSION: No radiographic evidence of acute cardiopulmonary disease. Reading Location: [place] [address]
--- NOTE | 2025-03-19 09:03 | EKG12_ITS ---
Test Reason : DIZZY Blood Pressure : */* mmHG Vent. Rate : 51 BPM Atrial Rate : 51 BPM P-R Int : 212 ms QRS Dur : 80 ms QT Int : 412 ms P-R-T Axes : 62 48 36 degrees QTcB Int : 379 ms Sinus bradycardia with 1st degree A-V block Nonspecific ST and T wave abnormality Abnormal ECG Confirmed by Panchito Tabares ([id number]), acquisitions editor YNES BAPTISTE ([id number]) on 03/21/2025 7:17:23 AM Referred By: Confirmed By: Panchito Tabares
[2025-03-19 09:09] VITALS: BP 109/66; BP 115/83; BP 117/81; PULSE 51; PULSE 52
--- NOTE | 2025-03-19 09:09 | ED.RN ---
Per Dr. Mccall no stroke alert
[2025-03-19 09:12] LABS: Hematocrit 41.0 % (40-54); Hemoglobin 13.8 g/dL (13.0-16.5); Immature Granulocytes Count 0.020 X10^3/uL (0.0-0.0); Mean Corp Hgb Conc 33.7 g/dL (32-36); Mean Corpuscular Volume 91.1 fL (80-94); Mean Platelet Vol. 10.2 fl (6.2-12.0); NRBC Flagged by Analyzer 0 % (0-5); Platelet Count 223 K/mm3 (150-450); RBC Distribution Width CV 12.2 % (11.6-14.6); RBC Distribution Width SD 40.8 fl (35.1-43.9); Red Blood Count 4.50 M/mm3 (4.6-6.2); White Blood Count 6.3 K/mm3 (4.4-11.0)
[2025-03-19 09:21] LABS: Prothrombin Time (Protime)PT. 13.7 SECONDS (11.7-14.9)
[2025-03-19 09:22] LABS: Partial Thromboplast Time 25.5 Seconds (24.1-36.2)
[2025-03-19 09:34] LABS: Anion Gap 8 (5-15); BUN 21 mg/dL (4-19); BUN/Creat Ratio 26.2 RATIO (10-20); Calcium,Total 9.3 mg/dL (7.6-11.0); Carbon Dioxide 22.2 mmol/L (21.0-32.0); Chloride 105 mmol/L (98-108); Estimated Creatinine Clearance 79.75 ml/min (50-250); Glucose 144 mg/dL (70-99); Potassium 4.2 mmol/L (3.3-5.1); Troponin T High Sensitivity < 6 ng/L (<=22)
--- NOTE | 2025-03-19 09:35 | CT_ITS ---
PROCEDURE: BRAIN/HEAD WITHOUT CONTRAST 03/19/2025 REASON FOR EXAM: DIZZINESS TECHNIQUE: Procedure Code: CTBR Modality: CT Procedure: BRAIN/HEAD WITHOUT CONTRAST Coronal and Sagittal reconstruction series were provided. One or more dose reduction techniques were used (e.g., Automated exposure control, adjustment of the mA and/or kV according to patient size, use of iterative reconstruction technique. RADIATION DOSE SUMMARY: CTDlvol: 44.99 mGy DLP: 846.73 mGycm COMPARISON: Brain MRI 01/17/2025. FINDINGS: Brain: Within normal limits for age. No extra-axial fluid collection is noted. A posterior fossa small arachnoid cyst is again seen. No orbital abnormality is seen. CSF Spaces: Within normal limits for age. Sinuses/Mastoids: Mild right maxillary sinus and right frontal sinus mucosal thickening is seen. [id number] bilateral ethmoid sinus mucosal thickening is noted. No air-fluid level is seen. The remaining paranasal sinuses appear clear. Mastoid air cells appear clear. Bones: No acute process is seen. CT/Brain/Head without Contrast IMPRESSION: No evidence of acute disease. Stable examination. Reading Location: [id number]
[2025-03-19 10:03] LABS: Mucous, Urine 0 SEEN /hpf (<or=2+); Red Blood Cells-Urine 0 SEEN /hpf (0-5); Squamous Epithelial Cells - UA 0 SEEN /hpf (0-5)
[2025-03-19 10:04] LABS: Color, Urine Yellow (Yellow); Glucose, Dipstick Normal (Normal); Ketone-Dipstick Negative (Negative); Leukocyte Esterase-Dipstick Negative /ul (Negative); Nitrite-Dipstick Negative (Negative); Occult Blood-Urine Negative /ul (Negative); Protein-Dipstick 30 mg/dl (Negative); Specific Gravity, Urine 1.015 (1.002-1.030); Urine Bilirubin Dipstick Negative (Negative)
[2025-03-19 10:04] LABS: Lithium 0.92 mmol/L (0.60-1.20)
[2025-03-19 10:23] VITALS: BP 121/75; PULSE 50; RESP 16; O2SAT 98
[2025-03-19 11:10] VITALS: BP 131/68; PULSE 53; RESP 18; TEMP 36.8; O2SAT 99
== END 2025-03-19 11:17 | disposition home or self-care (01) ==
PROVIDERS: Emergency Provider Emergency Medicine; PCP Family Medicine; Visit Provider Emergency Medicine
DX: R42 Dizziness and giddiness (principal); F41.1 Generalized anxiety disorder; R11.0 Nausea; R51.9 Headache, unspecified; M54.2 Cervicalgia; I44.0 Atrioventricular block, first degree; R00.1 Bradycardia, unspecified
CPT/HCPCS: 70450; 71046; 80048; 80178; 81001; 82962; 84484; 85025; 85610; 85730; 93005; 99284

== ENCOUNTER → 2025-05-13 | Outpatient (CLI) | payer MEDICARE, SELFPAY ==
--- NOTE | 2025-05-13 10:07 | ECHOD_ITS ---
Reason For Study Reason For Study: Fatigue, First Degree AV Block Procedure This was a 2D Doppler, Color Flow transthoracic echocardiogram. Myocardial strain analysis was performed in this exam to aid in the assessment of cardiac function. Exam performed in department. Left Ventricle Normal left ventricular size. Normal left ventricular wall thickness. Left ventricular EF by Momin's biplane: 61%. Normal diastolic function. E/e' suggest normal filling pressures. No regional wall motion abnormalities noted. Right Ventricle Normal right ventricle. Normal systolic function. RVSP estimated to be less than 30 mmHg. Atria Normal-sized left atrium, borderline dilated right atrium. Estimated right atrial pressure: 3 mmHg. Normal atrial septum. Bubble study negative for PFO. 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 Mitral Valve Normal mitral valve. Trace mitral regurgitation. No mitral stenosis. Tricuspid Valve Normal tricuspid valve. Mild tricuspid regurgitation. No tricuspid stenosis. Aortic Valve Normal trileaflet aortic valve. No aortic regurgitation. No hemodynamically significant aortic stenosis. Pulmonic Valve Normal pulmonic valve. Mild pulmonic regurgitation. No pulmonic stenosis. Great Vessels Normal sized aortic root. Normal ascending aorta. Pericardium/Pleural No pericardial effusion. MMode/2D Measurements & Calculations LVIDd: 4.9 cm IVSd: 0.70 cm Ao root diam: 3.6 cm LVIDs: 3.4 cm LVPWd: 0.96 cm RVDd: 4.1 cm FS: 30.9 % LAV(MOD-bp): 41.2 ml LVAd ap4: 25.2 cm2 SV(MOD-sp4): 45.6 ml LAV(MOD-bp) Indexed: 23.6 ml/m2 LVLd ap4: 7.4 cm SI(MOD-sp4): 26.2 ml/m2 LAV(MOD-sp2): 43.3 ml EDV(MOD-sp4): 72.3 ml LAV(MOD-sp4): 38.6 ml EDV(sp4-el): 73.1 ml LVAs ap4: 13.7 cm2 LVLs ap4: 5.9 cm ESV(MOD-sp4): 26.6 ml ESV(sp4-el): 27.0 ml EF(MOD-sp4): 63.1 % EF(sp4-el): 63.1 % SV(sp4-el): 46.1 ml LA A4 area: 16.0 cm2 LA dimension(2D): 3.6 cm RA A4 area: 21.6 cm2 TAPSE: 2.6 cm Time Measurements MV dec time: 0.30 sec Doppler Measurements & Calculations MV E max abel: 61.6 cm/sec Lat Peak E' Abel: 10.9 cm/sec Med Peak E' Abel: 7.0 cm/sec MV A max abel: 74.3 cm/sec E/E' lat: 5.7 E/E' med: 8.8 MV E/A: 0.83 Ao V2 max: 114.3 cm/sec LV V1 max: 96.1 cm/sec MV dec slope: 204.2 cm/sec2 Ao max P.2 mmHg LV V1 max P.7 mmHg Ao V2 mean: 76.0 cm/sec LV V1 mean P.8 mmHg Ao mean P.7 mmHg LV V1 mean: 60.5 cm/sec Ao V2 VTI: 27.0 cm LV V1 VTI: 20.1 cm AV (velocity ratio): 0.75 PA V2 max: 86.5 cm/sec PI end-d abel: 86.9 cm/sec TR max abel: 236.2 cm/sec TR max P.3 mmHg ECHO/Echo Complete Interpretation Summary Normal-sized left ventricle Normal left ventricular systolic function, Momin's biplane EF: 61% Normal left ventricular diastolic function Normal RV systolic function There is no hemodynamically significant valvular disease. Ordering Physician: Reji Iniguez Referring Physician: Obdulio Angel Performed By: Teresita Ly RDCS, RVT
== END | disposition home or self-care (01) ==
PROVIDERS: PCP Family Medicine; Referring Provider Student in an Organized Health Care Education/Training Program; Visit Provider Student in an Organized Health Care Education/Training Program
DX: R94.31 Abnormal electrocardiogram [ECG] [EKG] (principal); R00.1 Bradycardia, unspecified; R53.83 Other fatigue; I44.0 Atrioventricular block, first degree
CPT/HCPCS: 93306; A4216